=== PATIENT | male | born 1985 | race Two or more races ===

== ENCOUNTER 2023-01-15 13:40 | Emergency (ER) | payer OTHER, SELFPAY ==
--- NOTE | ~2023-01-15 | US_ITS ---
EXAMINATION: US RETROPERITONEAL LIMITED (RENAL ONLY) CLINICAL INFORMATION: Renal stones. COMPARISON: None available. TECHNIQUE: Multiple 2-D grayscale and color Doppler ultrasound images of the kidneys were obtained. FINDINGS: RIGHT KIDNEY: 10.8 x 5.6 x 5.6 cm (SAG x AP x TRV). A small hypoechoic cyst is seen in the upper pole measuring 0.2 cm. An interpolar echogenic focus measures 0.4 cm. No right hydronephrosis. Color Doppler showed no abnormal vascular flow. LEFT KIDNEY: 12.0 x 6.5 x 6.7 cm (SAG x AP x TRV). An interpolar cyst measures 1.1 cm. An upper pole echogenic focus measures 0.6 cm. A second echogenic focus measures 0.3 cm. No left hydronephrosis. Color Doppler showed no abnormal vascular flow. US/US renal BI IMPRESSION: Small renal cysts bilaterally demonstrate benign features not requiring follow-up. Nonobstructing intrarenal calculi bilaterally.
--- NOTE | 2023-01-15 13:46 | ED.ABDPAIN ---
HPI - Abdominal Pain General Chief Complaint: Abdominal Pain Stated Complaint: Kidney Stones Time Seen by Provider: 01/15/23 14:57 Source: patient Mode of arrival: ambulatory Limitations: no limitations History of Present Illness HPI narrative: Patient comes to the emergency room complaining of left-sided flank pain. Patient states the pain is intermittent, denies dysuria or hematuria. Patient states that 3 years ago he had a kidney stone and the pain is very similar. Patient denies nausea vomiting or diarrhea, no abdominal pain. No fever or chills. Related Data Previous Rx's Medication Instructions Recorded ibuprofen 600 mg tablet 600 mg PO TID PRN fever or pain 01/15/23 #14 tabs tamsulosin 0.4 mg capsule 0.4 mg PO DAILY #10 caps 01/15/23 Allergies Allergy/AdvReac Type Severity Reaction Status Date / Time No Known Allergies Allergy Verified 01/15/23 13:46 Review of Systems Review of Systems Constitutional : No Weight loss, No Fever, No Chills, No Night Sweats, No Fatigue, No Malaise ENT/Mouth : No Hearing loss, No Ear Pain, No Nasal Congestion, No Sinus Pain, No Hoarseness, No sore throat, No Rhinorrhea, No Swallowing Difficulty Eyes: No Eye Pain, No Swelling, No Redness, No Foreign Body, No Discharge, No Vision Changes Cardiovascular : No Chest Pain, No SOB, No Dyspnea on Exertion, No Orthopnea, No Edema, No Palpitations Respiratory : No Cough, No Sputum, No Wheezing, No Smoke Exposure, No Dyspnea Gastrointestinal : No Nausea, No Vomiting, No Diarrhea, No Constipation, No abdominal Pain, No Hematochezia, No Melena Genitourinary : no irregular bleeding, No Dysuria, No Urinary Frequency, No Hematuria, No Urinary Incontinence, No Urgency, complaining of left-sided Flank Pain, No Urinary Flow Changes, No Hesitancy Musculoskeletal : No joint pain, No Myalgias, No Joint Swelling Skin : No Skin Lesions, No rash Neuro : No Weakness, No Numbness, No Paresthesias, No Loss of Consciousness, No Dizziness, No Headache Psych : No Anxiety/Panic, No Depression, No SI/HI/AH/VH, No Social Issues, Heme/Lymph: No Bruising, No Bleeding,No Lymphadenopathy Endocrine : No Polyuria, No Polydipsia, No Temperature Intolerance [facility] Past Medical History Medical History GERD (gastroesophageal reflux disease) Overweight (BMI 25.0-29.9) Renal calculi Surgical History No pertinent past surgical history Family History Family History Mother No problems noted. Father No problems noted. Social History Social History Housing: Apartment Alcohol intake: never Patient Tobacco Use Status: Never used Tobacco Smoked in Last 30 Days: No e-Cigarette/Vaping Use: Never Used Second Hand Smoke Exposure: No Use of substances other than those prescribed or required for medical reasons: No Advance Directives: No Advance Directives Information Provided: No service: No Current occupational status: unemployed Physical Exam ED Vital Signs: Vital Signs - 24 hr 01/15/23 13:47 01/15/23 15:12 Temperature 98.4 F Pulse Rate 75 64 Respiratory Rate 19 16 Blood Pressure 144/99 H 136/96 H Pulse Oximetry 98 98 Oxygen Delivery Method Room Air Room Air BMI result Body Mass Index 28.7 Const Other: Appearance: Alert. Oriented X3. No acute distress. Eyes: Pupils equal, round and reactive to light. ENT: Pharynx normal. Neck: Normal inspection. Neck supple. No lymph nodes noted. No crepitus CVS: Normal heart rate and rhythm. Pulses normal. Normal S1 and S2 Respiratory: No respiratory distress. Breath sounds normal. No Wheezing. No rales Abdomen: Soft and nontender. No rigidity. No distention. Mild CVA tenderness on the left Skin: Skin warm and dry. Normal skin color. Normal skin turgor. Extremities: No lower extremity edema. No Lacerations. No Rash Neuro: Oriented X 3. No motor deficit. No sensory deficit. Moving all extremities. No slurred speech. CN 2 through 12 grossly intact Psych: calm, cooperative, normal affect Course Course Course Narrative: RME: 38yo M w/PMHx renal stones c/o LUQ abdominal pain x yesterday, admits feels similar to prior kidney stones. Denies fever, chills, N/V, urinary sx +L CVAT, abdomen soft & nontender Labs, UA, renal ultrasound ordered Full HPI, ROS and PE to be performed by primary ED provider. Medical Decision Making Medical Decision Making [facility] Narrative: -my interpretation of labs, normal white blood cell count, normal BUN creatinine and chemistry -urinalysis positive for blood, no UTI. It is likely the patient is passing a kidney stone -my interpretation of ultrasound results, no obvious calcifications -patient overall feeling better. I discussed with the patient that it is likely that he already passed a kidney stone. Differential Diagnosis Differential Diagnoses: The differential diagnosis associated with the presentation includes (UTI, pyelonephritis, ureterolithiasis) Admission/Observation Consideration of admission/observation: Escalation of care including admission/observation considered (Patient initially came in complaining of flank pain, patient has history of stones, admission considered) Lab Data [facility] Lab Attestation statement: I reviewed the patient's lab results. 01/15/23 13:59 01/15/23 13:59 Labs: Lab Results 01/15/23 01/15/23 01/15/23 Range/Units 13:59 13:59 13:59 WBC 4.8 (4.8-10.8) X10*3/uL RBC 5.37 (4.60-5.80) X10*6/uL Hgb 16.2 (14.0-18.0) g/dl Hct 48.6 (42.0-52.0) % MCV 90.5 (80.0-98.0) fL MCH 30.2 (27.0-33.0) pg MCHC 33.3 (31.0-36.0) g/dl RDW 14.4 (11.0-16.0) % Plt Count 239 (160-400) X10*3/uL MPV 10.2 (9.4-12.4) fL Immature Gran % (Auto) 0.4 (0.0-0.4) % Neut % (Auto) 56.2 (45-73) % Lymph % (Auto) 35.1 (20-40) % [place] % (Auto) 6.9 (2-11) % Eos % (Auto) 0.8 (0-4) % Baso % (Auto) 0.6 (0-2) % Lymph # (Auto) 1.7 (1.2-4.9) X10*3/uL [place] # (Auto) 0.3 (0.1-1.2) X10*3/uL Eos # (Auto) 0.0 (0.0-0.4) X10*3/uL Baso # (Auto) 0.0 (0.0-0.2) X10*3/uL Abs Immat Gran (auto) 0.02 (0.00-0.03) X10*3/uL Absolute Neuts (auto) 2.7 (2.0-8.3) x10*3/uL Absolute Nucleated RBC 0.000 (0.0-0.012) X10*3/uL Nucleated RBC % (auto) 0.0 (0.0-0.2) /100WBC Sodium 139 (135-145) mmol/L Potassium 4.0 (3.3-5.1) mmol/L Chloride 106 (96-108) mmol/L Carbon Dioxide 27 (22-29) mmol/L Anion Gap 10 L (12-20) BUN 13 (9-16) mg/dL Creatinine 0.97 (0.5-1.4) mg/dL Estim Creat Clear Calc 118.1 Estimated GFR > 60 Random Glucose 93 (60-115) mg/dL Calcium 9.9 (8.4-10.2) mg/dL Total Bilirubin 0.3 (0.0-1.0) mg/dL Direct Bilirubin 0.1 (0.0-0.5) mg/dL AST 20 (5-37) U/L ALT 17 (0-40) U/L Alkaline Phosphatase 79 (39-117) U/L Total Protein 7.6 (6.5-8.0) g/dL Albumin 4.3 (3.5-5.0) g/dL Lipase 17 (8-78) U/L Urine Color Yellow Urine Appearance Clear Urine pH 6.0 (5.0-9.0) Ur Specific [place] 1.020 (1.005-1.025) Urine Protein 30 (1+) H (Neg-Trace) mg/dL Urine Glucose (UA) Negative (Negative) mg/dL Urine Ketones Negative (Negative) mg/dL Urine Blood Large (3+) H (Negative) Urine Nitrite Negative (Negative) Ur Leukocyte Esterase Negative (Negative) Urine RBC >20 H (0-2) /HPF Urine WBC 0-5 (0-5) /HPF Ur Squamous Epith Cells 0-2 (0-2) /HPF Urine Bacteria None Seen (None Seen) Hyaline Casts 0-2 (0-2) /LPF Independent Interpretation I performed an independent interpretation of an: Ultrasound Radiology Impression Discussion of test interpretation with radiology: I have reviewed the radiologist's reading. Radiologist Impression: FINDINGS: RIGHT KIDNEY: 10.8 x 5.6 x 5.6 cm (SAG x AP x TRV). A small hypoechoic cyst is seen in the upper pole measuring 0.2 cm. An interpolar echogenic focus measures 0.4 cm. No right hydronephrosis. Color Doppler showed no abnormal vascular flow. LEFT KIDNEY: 12.0 x 6.5 x 6.7 cm (SAG x AP x TRV). An interpolar cyst measures 1.1 cm. An upper pole echogenic focus measures 0.6 cm. A second echogenic focus measures 0.3 cm. No left hydronephrosis. Color Doppler showed no abnormal vascular flow. US/US renal BI IMPRESSION: Small renal cysts bilaterally demonstrate benign features not requiring follow-up. Nonobstructing intrarenal calculi bilaterally. Independent Historian Clinical information obtained from an independent historian. History obtained from or confirmed by: Spouse External Record Review External record reviewed: Inpatient record (Visit with PCP on April 2021, recorded history of renal calculi) Prescription Management I considered prescription management with: Pain Medication (Narcotics were considered, however, patient is no longer having any significant pain, patient does not have ureterolithiasis) Medications Administered Discontinued Medications Generic Name Dose Route Start Last Admin Trade Name Freq PRN Reason Stop Dose Admin Ketorolac Tromethamine 60 mg 01/15/23 15:08 01/15/23 15:33 Ketorolac Tromethamine 60 Mg/2 Ml Vial IM 01/15/23 15:09 60 mg ONCE ONE Administration Critical Care Time Critical Care Time Critical Care Time: Yes Total Critical Care Time: 45 Attestation: I have personally provided critical care time. Time includes review of lab data, radiology results, discussion with consultants, and monitoring for potential decompensation. Intervention performed as documented. Discharge Plan Discharge Clinical Impression: Hematuria, Renal colic Patient Disposition: Home, Self-Care Instructions: Renal Colic (ED) Additional Instructions: Please follow-up with your primary care physician tomorrow. If you have any worsening or new symptoms, please return to the emergency room or call 911 Prescriptions: New tamsulosin 0.4 mg capsule 0.4 mg PO DAILY Qty: 10 0RF ibuprofen 600 mg tablet 600 mg PO TID PRN (Reason: fever or pain) Qty: 14 0RF
[2023-01-15 13:47] VITALS: BP 144/99; PULSE 75; RESP 19; O2SAT 98; BMI 28.7
[2023-01-15 14:03] LABS: MANUAL DIFF FLAG NO
[2023-01-15 14:06] LABS: Basophils Percent Auto 0.6 % (0-2); Eosinophils Percent Auto 0.8 % (0-4); Hematocrit 48.6 % (42.0-52.0); Hemoglobin 16.2 g/dl (14.0-18.0); Imm Gran Abs Auto 0.02 X10*3/uL (0.00-0.03); Imm Gran Pct Auto 0.4 % (0.0-0.4); Lymphocytes Absolute Auto 1.7 X10*3/uL (1.2-4.9); Lymphocytes Percent Auto 35.1 % (20-40); Mean Corpuscular HGB Conc 33.3 g/dl (31.0-36.0); Mean Corpuscular Hemoglobin 30.2 pg (27.0-33.0); Mean Corpuscular Volume 90.5 fL (80.0-98.0); Mean Platelet Volume 10.2 fL (9.4-12.4); Monocytes Absolute Auto 0.3 X10*3/uL (0.1-1.2); Monocytes Percent Auto 6.9 % (2-11); Neutrophils Absolute Auto 2.7 x10*3/uL (2.0-8.3); Neutrophils Percent Auto 56.2 % (45-73); Platelet Count 239 X10*3/uL (160-400); Red Blood Count 5.37 X10*6/uL (4.60-5.80); Red Cell Distribution Width 14.4 % (11.0-16.0); White Blood Count 4.8 X10*3/uL (4.8-10.8)
[2023-01-15 14:07] LABS: Appearance Urine Clear; Color Urine Yellow; Glucose Urine UA Negative (Negative); Leukocyte Esterase Urine Negative (Negative); Nitrite Urine Negative (Negative); UMIC TRIGGER UACC YES; Urine Blood Large (3+) (Negative); Urine Ketones Negative (Negative); Urine Protein 30 (1+) mg/dL (Neg-Trace)
[2023-01-15 14:09] LABS: Bacteria Urine None Seen (None Seen); Hyaline Casts Urine 0-2 /LPF (0-2); RBC Urine >20 /HPF (0-2); Squamous Epithelial Cell Urine 0-2 /HPF (0-2); WBC Urine 0-5 /HPF (0-5)
[2023-01-15 14:19] LABS: Alanine Aminotransferase 17 U/L (0-40); Albumin Level 4.3 g/dL (3.5-5.0); Alkaline Phosphatase 79 U/L (39-117); Anion Gap 10 (12-20); Aspartate Amino Transferase 20 U/L (5-37); Bilirubin Direct 0.1 mg/dL (0.0-0.5); Bilirubin Total 0.3 mg/dL (0.0-1.0); Blood Urea Nitrogen 13 mg/dL (9-16); Calcium 9.9 mg/dL (8.4-10.2); Carbon Dioxide 27 mmol/L (22-29); Chloride 106 mmol/L (96-108); Creatinine Clr Calc Pharmacy 118.1; Estimated Glomerular Filt Rate > 60; Glucose Random 93 mg/dL (60-115); Lipase 17 U/L (8-78); Sodium 139 mmol/L (135-145); Total Protein 7.6 g/dL (6.5-8.0)
[2023-01-15 15:12] VITALS: BP 136/96; PULSE 64; RESP 16; TEMP 36.9; O2SAT 98
[2023-01-15] MEDS: Ketorolac Tromethamine 60 MG/2 ML VIAL IM (15:33)
[2023-01-15 16:33] VITALS: BP 140/90; PULSE 69; RESP 17; O2SAT 97
== END 2023-01-15 16:38 | disposition home or self-care (01) ==
PROVIDERS: Physician Assistant; Emergency Provider Emergency Medicine; PCP Internal Medicine
DX: R31.9 Hematuria, unspecified (principal); N23 Unspecified renal colic; K21.9 Gastro-esophageal reflux disease without esophagitis
CPT/HCPCS: 36415; 76775; 80048; 80076; 81001; 83690; 85025; 96372; 99284; J1885

== ENCOUNTER 2023-01-18 11:03 | Emergency (ER) | payer OTHER, SELFPAY ==
--- NOTE | ~2023-01-18 | US_ITS ---
EXAMINATION: US RETROPERITONEAL LIMITED (RENAL ONLY) INDICATION: Left CVA tenderness EXAMINATION: Renal ultrasound. Comparison is made to previous exam dated 01/15/2023. Findings; Right kidney is measuring 11 x 5 x 6 cm. There is no evidence of hydronephrosis. Several areas of echogenicity are noted. One in the lower pole measuring 4 mm and another in the lower pole measuring 6 mm. These may represent nonobstructing calculi. The left kidney is measuring 13 x 8 x 6 cm. Examination is showing mild pelvic fullness on this study. Similar to previous exam. 3 Stones are identified. Largest in the midpole measures 7 mm. 4 mm calculus in the upper pole and a 6 mm calculus in the lower pole US/US renal BI IMPRESSION: Bilateral renal calculi are demonstrated here. Mild fullness of the central collecting system of the left kidney but this is also the case previously.
--- NOTE | ~2023-01-18 | CT_ITS ---
EXAMINATION: CT ABDOMEN AND PELVIS WITHOUT CONTRAST CLINICAL INFORMATION: Flank pain. COMPARISON: None available. TECHNIQUE: Multidetector volumetric imaging was performed from the superior aspect of the liver through the pubic symphysis. Sagittal and coronal reformatted images were obtained on the technologist's workstation. This CT examination was performed using dose optimization techniques as appropriate, variously including the following: *Automated exposure control *Adjustment of mA and/or kV according to patient size (this includes techniques or standardized protocols for targeted exams where dose is matched to indication/reason for exam; i.e. extremities or head) *Use of iterative reconstruction technique DLP: 537 mGy-cm FINDINGS: The lack of intravenous contrast limits evaluation of the solid visceral organs including the liver, spleen, pancreas, and kidneys. LUNG BASES: Platelike opacities in the right greater than left lung bases, favoring to represent subsegmental atelectases. LIVER, GALLBLADDER, AND BILIARY TREE: Noncontrast liver is normal in size, shape and attenuation. There is a 1.4 cm simple fluid attenuating cyst abutting the gallbladder in the medial left hepatic lobe and a 1.5 cm simple fluid attenuating cyst in the hepatic dome. There are several additional too small to characterize hypodensities scattered throughout the liver. Subtle hyperattenuating material layering in the gallbladder likely representing sludge. No calcified gallbladder calculi. No significant pericholecystic fat stranding or free fluid to suspected acute cholecystitis. No biliary ductal dilatation. PANCREAS: Limited noncontrast examination. Minimal nonspecific fatty haziness at the root of the small bowel mesentery. No significant peripancreatic fat stranding or free fluid. No main ductal dilatation. SPLEEN: Normal size. ADRENAL GLANDS: There is a 1.2 cm left adrenal nodule measuring 16 Hounsfield units. Normal right adrenal gland. KIDNEYS AND URETERS: Mild left hydroureteronephrosis with a 0.7 cm calculus in the proximal left ureter at the level of L2 measuring 1353 Hounsfield units. Multiple additional bilateral nonobstructive renal calculi in the number of approximately 5 in the right kidney and 3 in the left kidney largest measuring 0.4 cm. No discrete focal renal lesion in this limited noncontrast examination. BLADDER: Unremarkable. GASTROINTESTINAL TRACT: The stomach and the small bowel are nondilated. Normal appendix. Mild colonic diverticulosis without significant pericolonic fat stranding or free fluid. No evidence of bowel obstruction. ABDOMINAL WALL: No significant hernia is appreciated. LYMPH NODES: No lymphadenopathy. VASCULAR: Normal caliber abdominal aorta. PELVIC VISCERA: Mild prostatomegaly. OSSEOUS STRUCTURES: No acute or aggressive appearing osseous findings. CT/CT abdomen pelvis wo IV con IMPRESSION: 1. Mild left hydroureteronephrosis with a 0.7 cm calculus in the proximal left ureter. 2. Multiple additional nonobstructive bilateral renal calculi. 3. Mild colonic diverticulosis without evidence of acute diverticulitis. 4. Liver cysts with several additional too small to characterize liver hypodensities that are statistically also likely to represent simple cysts. If the patient has risk factors for malignancy, further characterization with an outpatient MRI of the abdomen with and without IV contrast is recommended. 5. Incidentally noted 1.2 cm left adrenal nodule measuring 16 Hounsfield units. If no prior history of malignancy, this most likely represents an adenoma. Recommend one-year follow-up adrenal washout CT. If stable in one year, no further follow-up imaging recommended.
--- NOTE | 2023-01-18 12:27 | ED_ITS ---
HPI - General Adult General Chief complaint: General Medical Stated complaint: kidney stone pain Time Seen by Provider: 01/18/23 16:56 Source: patient Mode of arrival: ambulatory Limitations: no limitations History of Present Illness HPI narrative: 38 yo male with history of renal colic here with left flank pain with radiation to left abdomen since Saturday. Today/yesterday had single episodes of vomiting. No diarrhea, constipation, urinary symptoms, fevers or chills Related Data Previous Rx's Medication Instructions Recorded ibuprofen 600 mg tablet 600 mg PO TID PRN fever or pain 01/15/23 #14 tabs tamsulosin 0.4 mg capsule 0.4 mg PO DAILY #10 caps 01/15/23 ibuprofen 600 mg tablet 600 mg PO Q8H PRN pain #30 tabs 01/18/23 oxycodone 5 mg tablet 5 mg PO Q8H PRN pain #10 tabs 01/18/23 tamsulosin 0.4 mg capsule (Flomax) 0.4 mg PO BEDTIME #30 caps 01/18/23 Allergies Allergy/AdvReac Type Severity Reaction Status Date / Time No Known Allergies Allergy Verified 01/18/23 12:29 Review of Systems Review of Systems: Yes all other systems are reviewed and are negative Constitutional: Constitutional: Reports no additional constitutional complaints, Denies body ache(s), Denies chills, Denies fever(s), Denies headache(s) and Denies weakness Eyes: Eyes: Reports no additional eye complaints and Denies change in vision ENT: Reports system reviewed and no additional complaints, except as documented, Denies dizziness, Denies headache(s), Denies nasal congestion, Denies nasal discharge and Denies neck pain Cardiovascular: Cardiovascular: Reports no additional cardiovascular complaints, Denies chest pain, Denies leg edema and Denies dyspnea Respiratory: Respiratory: Reports no additional respiratory complaints, Denies cough and Denies dyspnea Gastrointestinal: Gastrointestinal: Reports no additional gastrointestinal complaints, Reports abdominal pain, Denies diarrhea, Reports nausea and Reports vomiting Genitourinary: Genitourinary: Denies urinary incontinence Musculoskeletal: Musculoskeletal: Reports no additional musculoskeletal complaints, Reports back pain, Denies arthralgias, Denies joint swelling, Denies neck pain, Denies numbness and Denies tingling Integumentary/Breasts: Skin/Breast: Reports system reviewed and no additional complaints, except as docu and Denies rash Neurologic: Reports system reviewed and no additional complaints, except as documented, Denies dizziness, Denies headache(s), Denies numbness, Denies tingling and Denies weakness PMFSH Past Medical History Attestation statement: The following information was validated with the patient. Source: old records reviewed and nursing notes reviewed Medical History GERD (gastroesophageal reflux disease) Overweight (BMI 25.0-29.9) Renal calculi Surgical History No pertinent past surgical history Family History Family History Mother No problems noted. Father No problems noted. Social History Social History Housing: Apartment Alcohol intake: never Patient Tobacco Use Status: Never used Tobacco Smoked in Last 30 Days: No e-Cigarette/Vaping Use: Never Used Second Hand Smoke Exposure: No Use of substances other than those prescribed or required for medical reasons: No Advance Directives: No Advance Directives Information Provided: No service: No Current occupational status: unemployed Physical Exam ED Vital Signs: Vital Signs - 24 hr 01/18/23 12:29 01/18/23 17:32 01/18/23 18:58 Temperature 97.9 F 98.4 F Pulse Rate 73 71 72 Respiratory Rate 20 18 18 Blood Pressure 143/83 H 139/87 153/96 H Pulse Oximetry 96 98 97 Oxygen Delivery Method Room Air Room Air Room Air BMI result Body Mass Index 28.5 Const General: cooperative, healthy appearing, comfortable and no acute distress Orientation/consciousness: patient oriented x3 Limitations: no limitations HENMT Head: Yes normal to inspection Ears: hearing grossly normal bilaterally Eyes General: appearance normal, both eyes and all related structures Pupils: Equal, round and reactive pupils present Neck Neck: Yes normal visual inspection, Yes full ROM, Yes no lymphadenopathy and Yes no meningeal signs Chest Chest palpation & inspection: normal inspection of the chest Resp Effort & Inspection: normal respiratory effort Auscultation: clear to auscultation bilaterally Cardio Rate: regular rate Rhythm: regular rhythm Peripheral pulses: Peripheral pulses 2+ throughout GI Inspection: Yes normal to inspection Palpation (GI): Soft to palpation, Tenderness to palpation present (GI) in the LUQ; with no rebound tenderness and no guarding Auscultation: normal bowel sounds General: Yes CVA tenderness (left) Back/Spine/Pelvis Back: CVA tenderness (left) Skin General skin exam: no rashes or lesions noted Neuro General: patient oriented x3, moves all extremities and no meningeal signs Cranial nerves: Yes Equal, round and reactive pupils present Cognition (Neuro): normal cognition Gait exam (Neuro): Normal gait present Extrem General: Yes normal to inspection Course Course Course Narrative: This is a rapid medical exam: Additional HPI, ROS, PE not included below will be deferred to primary provider. Patient is a 38-year-old male with history of renal calculi presenting to the emergency department with left flank pain occasionally radiating around to LLQ since Saturday. States feels similar to prior stones. No difficulty urinating. Reports nausea and vomiting as well as subjective fevers. Positive left CVA tenderness on exam. Plan: UA, labs, U/S, IM ketorolac in triage Reevaluation(s) Reevaluation #1: 1830-labs show normal renal function and CBC. UA shows large amounts of blood and small leuks. Renal ultrasound is unremarkable. Continued pain. Will check CT abdomen and pelvis Reevaluation #2: 1930- IMPRESSION: 1.? Mild left hydroureteronephrosis with a 0.7 cm calculus in the proximal left ureter. 2.? Multiple additional nonobstructive bilateral renal calculi. 3.? Mild colonic diverticulosis without evidence of acute diverticulitis. 4.? Liver cysts with several additional too small to characterize liver hypodensities that are statistically also likely to represent simple cysts. If the patient has risk factors for malignancy, further characterization with an outpatient MRI of the abdomen with and without IV contrast is recommended. 5.? Incidentally noted 1.2 cm left adrenal nodule measuring 16 Hounsfield units. If no prior history of malignancy, this most likely represents an adenoma. Recommend one-year follow-up adrenal washout CT. If stable in one year, no further follow-up imaging recommended. The findings reviewed with the patient and his . She was given a copy of the report with the patient's consent. The patient tells me his pain is resolved. I will discharge him home with NSAID, Flomax and oxycodone p.r.n.. Recommend he follow-up with urology outpatient. Reviewed worrisome signs and symptoms of when to return to the emergency room. Comfortable plan for discharge home. Medications Administered Discontinued Medications Generic Name Dose Route Start Last Admin Trade Name Eduardo PRN Reason Stop Dose Admin Sodium Chloride 1,000 mls @ 999 mls/hr 01/18/23 17:06 01/18/23 19:31 Ns IV 01/18/23 18:06 Infused .Q1H1M STA Infusion Ketorolac Tromethamine 30 mg 01/18/23 12:30 01/18/23 12:35 Ketorolac Tromethamine 30 Mg/Ml Vial IM 01/18/23 12:31 30 mg ONCE ONE Administration Morphine Sulfate 4 mg 01/18/23 17:06 01/18/23 18:09 Morphine Sulfate 4 Mg/Ml Cartridge IVPUSH 01/18/23 17:07 4 mg ONCE ONE Administration Protocol Ondansetron HCl 4 mg 01/18/23 17:06 01/18/23 18:09 Ondansetron Hcl 4 Mg/2 Ml Vial IVPUSH 01/18/23 17:07 4 mg ONCE ONE Administration Medical Decision Making Medical Decision Making [facility] Narrative: 38 yo male with history of renal colic here with left flank pain with radiation to LUQ since Saturday, 2 episodes of vomiting. On exam patient with L CVAT, LUQ TTP with no rebound or guarding. Will obtain labs, UA, provide analgesia. May need advanced imaging Differential Diagnosis Differential Diagnoses: The differential diagnosis associated with the presentation includes Pancreatitis, renal colic, pyelonephritis Low concern for acute appendicitis or diverticulitis Admission/Observation Consideration of admission/observation: Escalation of care including admission/observation considered See course of care Lab Data [facility] Lab Attestation statement: I reviewed the patient's lab results. 01/18/23 14:36 01/18/23 14:36 Labs: Lab Results 01/18/23 01/18/23 01/18/23 Range/Units 14:36 14:36 14:36 WBC 10.8 (4.8-10.8) X10*3/uL RBC 5.38 (4.60-5.80) X10*6/uL Hgb 16.1 (14.0-18.0) g/dl Hct 48.2 (42.0-52.0) % MCV 89.6 (80.0-98.0) fL MCH 29.9 (27.0-33.0) pg MCHC 33.4 (31.0-36.0) g/dl RDW 14.5 (11.0-16.0) % Plt Count 248 (160-400) X10*3/uL MPV 9.8 (9.4-12.4) fL Immature Gran % (Auto) 0.1 (0.0-0.4) % Neut % (Auto) 84.2 H (45-73) % Lymph % (Auto) 10.4 L (20-40) % [place] % (Auto) 4.9 (2-11) % Eos % (Auto) 0.0 (0-4) % Baso % (Auto) 0.4 (0-2) % Lymph # (Auto) 1.1 L (1.2-4.9) X10*3/uL [place] # (Auto) 0.5 (0.1-1.2) X10*3/uL Eos # (Auto) 0.0 (0.0-0.4) X10*3/uL Baso # (Auto) 0.0 (0.0-0.2) X10*3/uL Abs Immat Gran (auto) 0.01 (0.00-0.03) X10*3/uL Absolute Neuts (auto) 9.1 H (2.0-8.3) x10*3/uL Absolute Nucleated RBC 0.000 (0.0-0.012) X10*3/uL Nucleated RBC % (auto) 0.0 (0.0-0.2) /100WBC Sodium 140 (135-145) mmol/L Potassium 4.0 (3.3-5.1) mmol/L Chloride 105 (96-108) mmol/L Carbon Dioxide 25 (22-29) mmol/L Anion Gap 14 (12-20) BUN 9 (9-16) mg/dL Creatinine 0.95 (0.5-1.4) mg/dL Estim Creat Clear Calc 120.1 Estimated GFR > 60 Random Glucose 86 (60-115) mg/dL Calcium 9.7 (8.4-10.2) mg/dL Total Bilirubin 0.6 (0.0-1.0) mg/dL AST 19 (5-37) U/L ALT 16 (0-40) U/L Alkaline Phosphatase 70 (39-117) U/L Total Protein 7.7 (6.5-8.0) g/dL Albumin 4.3 (3.5-5.0) g/dL Lipase 14 (8-78) U/L Urine Color Yellow Urine Appearance Clear Urine pH 6.0 (5.0-9.0) Ur Specific [place] 1.020 (1.005-1.025) Urine Protein 30 (1+) H (Neg-Trace) mg/dL Urine Glucose (UA) Negative (Negative) mg/dL Urine Ketones Negative (Negative) mg/dL Urine Blood Large (3+) H (Negative) Urine Nitrite Negative (Negative) Ur Leukocyte Esterase Small (1+) H (Negative) Urine RBC >20 H (0-2) /HPF Urine WBC 0-5 (0-5) /HPF Ur Squamous Epith Cells 0-2 (0-2) /HPF Urine Bacteria None Seen (None Seen) Hyaline Casts 0-2 (0-2) /LPF Independent Interpretation I performed an independent interpretation of an: Ultrasound and CT Scan Interpretation: I independently reviewed the ultrasound and CT scan agree the radiology report Radiology Impression Discussion of test interpretation with radiology: I have reviewed the radiologist's reading. Radiologist Impression: Launch?Image [place] [address] Ultrasound Report Signed Patient: Bhavin Gonzalez MR#: [id number] : 1985 Acct:[id number] Age/Sex: 38 / M ADM Date: 01/18/23 Loc: .ED Attending Dr: Ordering Physician: Ashely Almodovar NP Date of Service: 01/18/23 Procedure(s): US renal BI Accession Number(s): [id number] cc: Ashely Almodovar NP~ EXAMINATION: US RETROPERITONEAL LIMITED (RENAL ONLY) INDICATION: Left CVA tenderness EXAMINATION: Renal ultrasound. Comparison is made to previous exam dated 01/15/2023. Findings; Right kidney is measuring 11 x 5 x 6 cm. There is no evidence of hydronephrosis. Several areas of echogenicity are noted. One in the lower pole measuring 4 mm and another in the lower pole measuring 6 mm. These may represent nonobstructing calculi. The left kidney is measuring 13 x 8 x 6 cm. Examination is showing mild pelvic fullness on this study. Similar to previous exam. 3 Stones are identified. Largest in the midpole measures 7 mm. 4 mm calculus in the upper pole and a 6 mm calculus in the lower pole US/US renal BI IMPRESSION: Bilateral renal calculi are demonstrated here. Mild fullness of the central collecting system of the left kidney but this is also the case previously. [address] [address] [address] Scan Report Signed Patient: Bhavin Gonzalez MR#: [id number] : 1985 Acct:[id number] Age/Sex: 38 / M ADM Date: 01/18/23 Loc: HO.ED Attending Dr: Ordering Physician: Taty Nice NP Date of Service: 01/18/23 Procedure(s): CT abdomen pelvis wo IV con Accession Number(s): [id number] cc: Taty Nice NP~ EXAMINATION: CT ABDOMEN AND PELVIS WITHOUT CONTRAST? CLINICAL INFORMATION: Flank pain.? COMPARISON: None available. TECHNIQUE: Multidetector volumetric imaging was performed from the superior aspect of the liver through the pubic symphysis. Sagittal and coronal reformatted images were obtained on the technologist's workstation.? This CT examination was performed using dose optimization techniques as appropriate, variously including the following: *Automated exposure control *Adjustment of mA and/or kV according to patient size (this includes techniques or standardized protocols for targeted exams where dose is matched to indication/reason for exam; i.e. extremities or head) *Use of iterative reconstruction technique DLP: 537 mGy-cm FINDINGS: The lack of intravenous contrast limits evaluation of the solid visceral organs including the liver, spleen, pancreas, and kidneys. LUNG BASES: Platelike opacities in the right greater than left lung bases, favoring to represent subsegmental atelectases.? LIVER, GALLBLADDER, AND BILIARY TREE: Noncontrast liver is normal in size, shape and attenuation. There is a 1.4 cm simple fluid attenuating cyst abutting the gallbladder in the medial left hepatic lobe and a 1.5 cm simple fluid attenuating cyst in the hepatic dome. There are several additional too small to characterize hypodensities scattered throughout the liver. Subtle hyperattenuating material layering in the gallbladder likely representing sludge. No calcified gallbladder calculi. No significant pericholecystic fat stranding or free fluid to suspected acute cholecystitis. No biliary ductal dilatation. PANCREAS: Limited noncontrast examination. Minimal nonspecific fatty haziness at the root of the small bowel mesentery. No significant peripancreatic fat stranding or free fluid. No main ductal dilatation. SPLEEN: Normal size.? ADRENAL GLANDS: There is a 1.2 cm left adrenal nodule measuring 16 Hounsfield units. Normal right adrenal gland.? KIDNEYS AND URETERS: Mild left hydroureteronephrosis with a 0.7 cm calculus in the proximal left ureter at the level of L2 measuring 1353 Hounsfield units. Multiple additional bilateral nonobstructive renal calculi in the number of approximately 5 in the right kidney and 3 in the left kidney largest measuring 0.4 cm. No discrete focal renal lesion in this limited noncontrast examination.? BLADDER: Unremarkable.? GASTROINTESTINAL TRACT: The stomach and the small bowel are nondilated. Normal appendix. Mild colonic diverticulosis without significant pericolonic fat stranding or free fluid. No evidence of bowel obstruction.? ABDOMINAL WALL: No significant hernia is appreciated.? LYMPH NODES: No lymphadenopathy. VASCULAR: Normal caliber abdominal aorta. PELVIC VISCERA: Mild prostatomegaly.? OSSEOUS STRUCTURES: No acute or aggressive appearing osseous findings. CT/CT abdomen pelvis wo IV con IMPRESSION: 1.? Mild left hydroureteronephrosis with a 0.7 cm calculus in the proximal left ureter. 2.? Multiple additional nonobstructive bilateral renal calculi. 3.? Mild colonic diverticulosis without evidence of acute diverticulitis. 4.? Liver cysts with several additional too small to characterize liver hypodensities that are statistically also likely to represent simple cysts. If the patient has risk factors for malignancy, further characterization with an outpatient MRI of the abdomen with and without IV contrast is recommended. 5.? Incidentally noted 1.2 cm left adrenal nodule measuring 16 Hounsfield units. If no prior history of malignancy, this most likely represents an adenoma. Recommend one-year follow-up adrenal washout CT. If stable in one year, no further follow-up imaging recommended. Independent Historian Clinical information obtained from an independent historian. History obtained from or confirmed by: Spouse Prescription Management I considered prescription management with: Pain Medication Discharge Plan Discharge Clinical Impression: Renal calculi Patient Disposition: Home, Self-Care Instructions: Kidney Stones (ED) Additional Instructions: You have a kidney stone on the left side. You also have several liver cyst which are incidental findings but do need to be followed up with your primary care doctor. You were given a copy of the report. Your lab work and urine testing look normal. Please increase fluids at home Return for increasing pain, fever, vomiting Follow-up with Urology Prescriptions: New ibuprofen 600 mg tablet 600 mg PO Q8H PRN (Reason: pain) Qty: 30 0RF tamsulosin [Flomax] 0.4 mg capsule 0.4 mg PO BEDTIME Qty: 30 0RF oxycodone 5 mg tablet 5 mg PO Q8H PRN (Reason: pain) Qty: 10 0RF Rx Instructions: Partial Fill upon patient request. No Action tamsulosin 0.4 mg capsule 0.4 mg PO DAILY Qty: 10 0RF ibuprofen 600 mg tablet 600 mg PO TID PRN (Reason: fever or pain) Qty: 14 0RF Referrals: Allen Szymanski MD [Physician] - 5 days Stand Alone Forms: Work/School Release Interventions: ED Discharge Assessment Last Done: 01/18/23 19:44 Discharge Date/Time: 01/18/23 19:44
[2023-01-18 12:29] VITALS: BP 143/83; PULSE 73; RESP 20; TEMP 36.6; O2SAT 96; BMI 28.5
[2023-01-18] MEDS: Ketorolac Tromethamine 30 MG/ML VIAL IM (12:35)
[2023-01-18 14:40] LABS: MANUAL DIFF FLAG NO
[2023-01-18 14:43] LABS: Appearance Urine Clear; Color Urine Yellow; Glucose Urine UA Negative (Negative); Leukocyte Esterase Urine Small (1+) (Negative); Nitrite Urine Negative (Negative); UMIC TRIGGER UACC YES; Urine Blood Large (3+) (Negative); Urine Ketones Negative (Negative); Urine Protein 30 (1+) mg/dL (Neg-Trace)
[2023-01-18 14:46] LABS: Basophils Percent Auto 0.4 % (0-2); Hematocrit 48.2 % (42.0-52.0); Hemoglobin 16.1 g/dl (14.0-18.0); Imm Gran Abs Auto 0.01 X10*3/uL (0.00-0.03); Imm Gran Pct Auto 0.1 % (0.0-0.4); Lymphocytes Absolute Auto 1.1 X10*3/uL (1.2-4.9); Lymphocytes Percent Auto 10.4 % (20-40); Mean Corpuscular HGB Conc 33.4 g/dl (31.0-36.0); Mean Corpuscular Hemoglobin 29.9 pg (27.0-33.0); Mean Corpuscular Volume 89.6 fL (80.0-98.0); Mean Platelet Volume 9.8 fL (9.4-12.4); Monocytes Absolute Auto 0.5 X10*3/uL (0.1-1.2); Monocytes Percent Auto 4.9 % (2-11); Neutrophils Absolute Auto 9.1 x10*3/uL (2.0-8.3); Neutrophils Percent Auto 84.2 % (45-73); Platelet Count 248 X10*3/uL (160-400); Red Blood Count 5.38 X10*6/uL (4.60-5.80); Red Cell Distribution Width 14.5 % (11.0-16.0); White Blood Count 10.8 X10*3/uL (4.8-10.8)
[2023-01-18 15:09] LABS: Bacteria Urine None Seen (None Seen); Hyaline Casts Urine 0-2 /LPF (0-2); RBC Urine >20 /HPF (0-2); Squamous Epithelial Cell Urine 0-2 /HPF (0-2); UACC Culture Trigger YES; WBC Urine 0-5 /HPF (0-5)
[2023-01-18 15:18] LABS: Alanine Aminotransferase 16 U/L (0-40); Albumin Level 4.3 g/dL (3.5-5.0); Alkaline Phosphatase 70 U/L (39-117); Anion Gap 14 (12-20); Aspartate Amino Transferase 19 U/L (5-37); Bilirubin Total 0.6 mg/dL (0.0-1.0); Blood Urea Nitrogen 9 mg/dL (9-16); Calcium 9.7 mg/dL (8.4-10.2); Carbon Dioxide 25 mmol/L (22-29); Chloride 105 mmol/L (96-108); Creatinine Clr Calc Pharmacy 120.1; Estimated Glomerular Filt Rate > 60; Glucose Random 86 mg/dL (60-115); Sodium 140 mmol/L (135-145); Total Protein 7.7 g/dL (6.5-8.0)
[2023-01-18 17:32] VITALS: BP 139/87; PULSE 71; RESP 18; TEMP 36.9; O2SAT 98
[2023-01-18 17:58] LABS: Lipase 14 U/L (8-78)
[2023-01-18] MEDS: 0.9 % Sodium Chloride 1,000 ML 999 ML IV (17:58)
[2023-01-18] MEDS: Morphine Sulfate 4 MG/ML CARTRIDGE IVPUSH (18:09)
[2023-01-18] MEDS: ondansetron HCL 4 MG/2 ML VIAL IVPUSH (18:09)
[2023-01-18 18:58] VITALS: BP 153/96; PULSE 72; RESP 18; O2SAT 97
--- NOTE | 2023-01-18 19:00 | PC.NURSE ---
Assumed care of pt. at bedside. Pt denies pain at this time. VSS, pending plan of care.
== END 2023-01-18 19:44 | disposition home or self-care (01) ==
PROVIDERS: Nurse Practitioner Family; Registered Nurse Emergency; Emergency Provider Emergency Medicine; PCP Internal Medicine
DX: N20.0 Calculus of kidney (principal); R10.9 Unspecified abdominal pain; R11.2 Nausea with vomiting, unspecified; Z79.899 Other long term (current) drug therapy
CPT/HCPCS: 36415; 74176; 76775; 80053; 81001; 83690; 85025; 87086; 96361; 96372; 96374; 96375; 99284; J1885; J2270; J2405

== ENCOUNTER 2023-02-13 09:56 | Outpatient (AMB) | payer OTHER, SELFPAY ==
[2023-02-13 09:57] VITALS: BP 130/100; PULSE 73; O2SAT 96; BMI 28.0
--- NOTE | 2023-02-13 09:57 | MHC.PC.OV ---
Vital Signs 02/13/23 09:57 Height 5 ft 10 in Weight 195 lb 2 oz BMI 28.0 BP 130/100 H Blood Pressure Location Lt brachial Position Sitting Pulse 73 Pulse Source Pulse Oximeter Pulse Oximetry (%) 96 Oxygen Delivery Method Room Air Intake Visit Reasons: f/u (Dr. Flores pt) Air Conditioning [employer] Required: No Accompanied by: Self / Same As Patient Allergies No Known Allergies Allergy (Verified 02/13/23 10:35) Medication List - Last Reconciled 02/13/23 by Michel Pruitt MD No Known Home Meds Tobacco use date assessed: 02/13/23 Dental Screening Dental Screen Date: 02/13/23 Did you have a dental visit in the last 12 months?: No Did you have a dental problem in the last 6 months where you did not have access to dental care?: No Was dental information given to patient?: No HPI f/u (Dr. Flores pt) HPI Details Patient comes in today for his HDF follow up visit He is a patient of Dr. Flores who I am seeing today in her absence He went to the ER last month on 01/18/23 for left flank and left abdominal pain and was diagnosed with renal stones Abdominal and pelvic CT done revealed (+) mild left hydronephrosis with a 0.7 mm calculus in the proximal left ureter as well as multiple additional nonobstructive bilateral renal calculi, confirmed on subsequent renal US He was started on Tamsulosin and on some Oxycodone and Ibuprofen PRN for pain and was advised to increase his oral fluids and to follow up with his PCP and with urology States that he has apparently passed out his kidney stones since and he currently has no further issues with abdominal or flank pains Is currently no longer taking any prescription medications regularly He denies any headaches or dizziness; denies any fever Denies any chest pains, no SOB No nausea/vomtiing; no acute urinary symptoms noted lately [facility] Medical History (Updated 02/13/23 @ 10:48 by Michel Pruitt MD) Renal calculi Overweight (BMI 25.0-29.9) GERD (gastroesophageal reflux disease) Surgical History No pertinent past surgical history Family History Mother No problems noted. Father No problems noted. Social History Housing: Apartment Alcohol intake: never Patient Tobacco Use Status: Never used Tobacco e-Cigarette/Vaping Use: Never Used Second Hand Smoke Exposure: No service: No Current occupational status: unemployed Cognitive needs: No Hearing needs: No Vision needs: No Questionnaire PHQ-9 Over the last 2 weeks, how often have you been bothered by any of the following problems? 1. Little interest or pleasure in doing things: not at all 2. Feeling down, depressed, or hopeless: not at all 3. Trouble falling or staying asleep, or sleeping too much: not at all 4. Feeling tired or having little energy: not at all 5. Poor appetite or overeating: not at all 6. Feeling bad about yourself - or that you are a failure or have let yourself or your family down: not at all 7. Trouble concentrating on things, such as reading the newspaper or watching television: not at all 8. Moving or speaking so slowly that other people could have noticed. Or the opposite - being so fidgety or restless that you have been moving around a lot more than usual: not at all 9. Thoughts that you would be better off or of hurting yourself in some way: not at all Total score: 0 Depression Screening Interpretation: Negative 76190 - PHQ-9 Billing: Yes Source: Developed by Drs. Chet Lara, Mary Fierro, Eloy Salgado and colleagues, with an educational ceci from [employer]. Thrive Questionnaire Date Thrive assessed: 02/13/23 I am a: Patient What is your living situation today?: I have a steady place to live Within the past 12 months, did the food you bought not last and you didn't have the money to get more?: Never true Within the past 12 months, did you worry whether your food would run out before you got money to buy more?: Never true Do you have trouble paying for medicines?: No Do you have trouble getting transportation to medical appointments?: No Do you have trouble paying your heating and electricity bill?: No Do you have trouble taking care of your child, family member or friend?: No Do you have trouble with day-to-day activities such as bathing, preparing meals, shopping, managing finances, etc.?: No Are you currently unemployed and looking for a job?: No Are you interested in more education?: No Please select the resources that you would like help with: None Currently or been in a relationship where the following occur: no concerns reported AUDIT C Alcohol Use Questionnaire (AUDIT-C) 1. How often do you have a drink containing alcohol?: Monthly or less 2. How many drinks containing alcohol do you have on a typical day when you are drinking?: 1 or 2 3. How often do you have six or more drinks on one occasion?: Never Total Score: 1 Score Reviewed/Action Taken: Yes JOCELINE-7 AMB Questionnaire JOCELINE-7 Date JOCELINE - 7 assessed: 02/13/23 Feeling nervous, anxious, or on edge: 0 = Not at all Not being able to stop or control worryin = Not at all Worrying too much about different things: 0 = Not at all Trouble relaxin = Not at all Being so restless that it is hard to sit still: 0 = Not at all Becoming easily annoyed or irritable: 0 = Not at all Feeling afraid as if something awful might happen: 0 = Not at all Total JOCELINE-7 score (0-4 normal; 5-9 mild; 10-14 moderate; 15-21 severe): 0 Source: Developed by Drs. Chet Lara, Mary Fierro, Eloy Salgado and colleagues, with an educational ceci from [employer]. JOCELINE-7 Assessment Billing JOCELINE-7 Assessment Tool: JOCELINE-7 Assessment 90028 Review of Systems Const Denies chills, Denies fatigue, Denies fever(s) and Denies headache(s) ENT Denies dysphagia, Denies dizziness, Denies otalgia, Denies headache(s), Denies neck pain, Denies odynophagia and Denies sore throat Card Denies chest pain, Denies palpitations and Denies dyspnea Resp Denies cough and Denies dyspnea GI Denies abdominal pain, Denies constipation, Denies dysphagia, Denies heartburn, Denies diarrhea, Denies nausea, Denies odynophagia and Denies vomiting Denies hematuria, Denies dysuria, Denies nocturia and Denies urinary frequency Musc Denies back pain and Denies neck pain Skin/Breast Denies rash Neuro Denies dizziness and Denies headache(s) Endo Denies fatigue and Denies palpitations Physical exam (Primary Care) Vital Signs: Last Vital Signs Pulse 73 02/13/23 09:57 BP 130/100 H 02/13/23 09:57 Pulse Ox 96 02/13/23 09:57 Oxygen Delivery Method Room Air 02/13/23 09:57 BMI result Body Mass Index 28.0 Tobacco/Smoking Status: Tobacco use Status Tobacco use date assessed 02/13/23 02/13/23 10:04 Patient Tobacco Use Status Never used Tobacco 02/13/23 10:04 e-Cigarette/Vaping Use Never Used 02/13/23 10:04 PHQ-9: PHQ-9 Score PHQ-9: Total score 0 02/13/23 10:34 Depression Screening Interpretation: Negative Thrive Assessment: Date of Thrive Assessment Date Thrive assessed 02/13/23 02/13/23 10:04 Currently or been in a relationship where the following occur: no concerns reported Const General: no acute distress and alert Neck Neck: Yes no lymphadenopathy and Yes supple Resp Auscultation: clear to auscultation bilaterally, no rales and no wheezes Cardio Rate: regular rate Rhythm: regular rhythm Heart sounds: no murmurs GI Palpation (GI): Soft to palpation and nontender Auscultation: normal bowel sounds General: Yes no CVA tenderness Back/Spine/Pelvis Back: no CVA tenderness Skin Rashes: no rashes Extrem General: Yes no clubbing, cyanosis or edema Results Reviewed Results Reviewed: Laboratory Tests 01/18/23 14:36 WBC 10.8 Hgb 16.1 Hct 48.2 Plt Count 248 Sodium 140 Potassium 4.0 Creatinine 0.95 Estimated GFR > 60 Random Glucose 86 Calcium 9.7 AST 19 ALT 16 Lipase 14 Ur Specific [place] 1.020 Urine Protein 30 (1+) H Urine Glucose (UA) Negative Urine Blood Large (3+) H Assessment and Plan Assessment & Plan (1) Renal calculi: Code(s): N20.0 - Calculus of kidney Plan: He is currently asymptomatic and appears to have passed out his previous renal calculi Reinforced increased oral fluids Will refer him to urology for follow up and continuing management (2) Elevated blood pressure reading without diagnosis of hypertension: Code(s): R03.0 - Elevated blood-pressure reading, without diagnosis of hypertension Plan: Is advised that his blood pressure remains elevated today and it has been elevated a few times over his last few visits here Discussed low sodium diet and advised goal of systolic BP of 120 mm or less Will have him follow up with his PCP regularly on this in the future (3) Overweight (BMI 25.0-29.9): Code(s): E66.3 - Overweight Plan: Reinforced diet/exercise as tolerated/lose weight Plan To return in 4 months for his annual physical examination with his PCP Orders: Referrals Urology Referral N20.0 - Calculus of kidney Coding Level of Care Code Est Pt Level 3 (79086) Diagnoses Renal calculi N20.0 Elevated blood pressure reading without diagnosis of hypertension R03.0 Overweight (BMI 25.0-29.9) E66.3 Additional Codes JOCELINE-7 Assessment Billing - JOCELINE-7 Assessment Tool: JOCELINE-7 Assessment 25770 ([id number])
== END 2023-02-13 10:42 | disposition home or self-care (01) ==
PROVIDERS: PCP Internal Medicine; Visit Provider Internal Medicine
DX: N20.0 Calculus of kidney (principal); R03.0 Elevated blood-pressure reading, without diagnosis of hypertension; E66.3 Overweight
CPT/HCPCS: 99213

== ENCOUNTER 2023-03-13 15:34 | Emergency (ER) | payer OTHER, SELFPAY ==
--- NOTE | ~2023-03-13 | CT_ITS ---
EXAMINATION: CT ABDOMEN AND PELVIS WITHOUT CONTRAST CLINICAL INFORMATION: Left lower quadrant pain COMPARISON: Previous CT and renal ultrasound December 2022 TECHNIQUE: Multidetector volumetric imaging was performed from the superior aspect of the liver through the pubic symphysis. Sagittal and coronal reformatted images were obtained on the technologist's workstation. This CT examination was performed using dose optimization techniques as appropriate, variously including the following: *Automated exposure control *Adjustment of mA and/or kV according to patient size (this includes techniques or standardized protocols for targeted exams where dose is matched to indication/reason for exam; i.e. extremities or head) *Use of iterative reconstruction technique DLP: 532 mGy-cm FINDINGS: LUNG BASES: The visualized lung bases are unremarkable. LIVER, GALLBLADDER, AND BILIARY TREE: The liver is normal in size, shape, and attenuation. Stable small low-attenuation lesions probably representing cysts, largest measuring 1 cm adjacent to the gallbladder. No biliary ductal dilatation is present. The gallbladder is unremarkable with no evidence of radiopaque gallstones, gallbladder wall thickening, or obvious pericholecystic inflammatory changes. PANCREAS: Unremarkable. SPLEEN: Unremarkable. ADRENAL GLANDS: Unremarkable KIDNEYS AND URETERS: Moderate left hydronephrosis and ureteral dilatation from a 5 x 7 left proximal ureteral stone. This probably represents the same stone seen December 2022. This is currently at the L3-L4 level, previously at the L2 level. Small bilateral renal stones largest measuring BLADDER: Unremarkable. GASTROINTESTINAL TRACT: The small and large bowel are unremarkable. The appendix is unremarkable. ABDOMINAL WALL: No significant hernia is appreciated. LYMPH NODES: Normal. VASCULAR: Unremarkable. PELVIC VISCERA: Unremarkable. OSSEOUS STRUCTURES: Unremarkable. CT/CT abdomen pelvis wo IV con IMPRESSION: Moderate left hydronephrosis and ureteral dilatation from a 5 x 7 mm left proximal ureteral stone. This probably represents the same stone seen December 2022 with minimal progression down the left ureter. Small bilateral renal stones. Stable small probable liver cysts. Fleischner guidelines were followed.
[2023-03-13 15:59] VITALS: BP 145/80; PULSE 79; RESP 18; TEMP 37.6; O2SAT 97; BMI 28.7
--- NOTE | 2023-03-13 16:01 | ED.ABDPAIN ---
HPI - Abdominal Pain General Chief Complaint: Abdominal Pain Stated Complaint: abdominal pain Time Seen by Provider: 03/13/23 18:05 Source: patient Mode of arrival: ambulatory History of Present Illness HPI narrative: 38-year-old male presents with known stones since December and has follow-up with Urology on 04/17 but states that early this morning he began experiencing significant left flank pain with associated nausea and vomiting but denies any fevers or chills or dysuria. Patient reports that his pain is 5/10. Related Data Previous Rx's Medication Instructions Recorded tamsulosin 0.4 mg capsule (Flomax) 0.4 mg PO BEDTIME #5 caps 03/13/23 Allergies Allergy/AdvReac Type Severity Reaction Status Date / Time No Known Allergies Allergy Verified 02/13/23 10:35 Review of Systems Review of Systems Pertinent positives and negatives as stated in HPI PMFSH Past Medical History Source: nursing notes reviewed Medical History Renal calculi Overweight (BMI 25.0-29.9) GERD (gastroesophageal reflux disease) Surgical History No pertinent past surgical history Family History Family History Mother No problems noted. Father No problems noted. Social History Social History Housing: Apartment Alcohol intake: never Patient Tobacco Use Status: Never used Tobacco Smoked in Last 30 Days: No e-Cigarette/Vaping Use: Never Used Second Hand Smoke Exposure: No Use of substances other than those prescribed or required for medical reasons: No Advance Directives: No Advance Directives Information Provided: Yes service: No Current occupational status: unemployed Cognitive needs: No Hearing needs: No Vision needs: No Physical Exam ED Vital Signs: Vital Signs - 24 hr 03/13/23 15:59 03/13/23 18:12 03/13/23 18:33 Temperature 99.6 F 98.0 F 98.5 F Pulse Rate 79 75 74 Respiratory Rate 18 18 14 Blood Pressure 145/80 H 146/88 H 147/94 H Pulse Oximetry 97 97 97 Oxygen Delivery Method Room Air Room Air Room Air BMI result Body Mass Index 28.7 VITAL SIGNS: Reviewed. GENERAL: Well developed, well nourished, in no acute distress. HEAD: Normocephalic/atraumatic EYES: PERRLA, EOMI EARS: Ext canals without abnormality NOSE: Nares patent bilateral OROPHARYNX: no oral lesions noted, posterior pharynx clear NECK: Supple, no adenopathy LUNGS: Normal breath sounds. No adventitious sounds or accessory muscle use. SpO2<97> CARDIOVASCULAR: Regular rate and rhythm without noted murmurs ABDOMEN: Soft, non-tender, non-distended with bowel sounds. MUSCULOSKELETAL: No tenderness, deformities, or effusions noted on gross inspection. EXTREMITIES: No cyanosis, clubbing or edema. SKIN: Inspection of the skin reveals no rashes NEUROLOGIC: Alert and oriented x 4. Strength and sensation to light touch were grossly intact x 4. Course Course Course Narrative: RME - 38 yo [place] speaking male with history of kidney stones, obesity, GERD who is presenting to the ER for evaluation of constant LLQ pain along w/ vomiting that started last night. No urinary symptoms or fevers. +constipation Plan: labs, UA, CT scan Medical Decision Making Medical Decision Making MDM Narrative: 38-year-old male with history and clinical presentation, DDX: Renal colic, diverticulitis, pancreatitis, constipation. I reviewed all investigations and hematologic indices are significant for a mild leukocytosis that could be stress related in nature given his vomiting as he is afebrile and not tachycardic. Chemistry indices are grossly within normal limits and do not demonstrate an MELINDA although there is obvious worsening of creatinine. There are no electrolyte or liver enzyme abnormalities. And urinalysis demonstrates significant hematuria with associated wbc's without bacteria. CT scan is significant for persistent moderate left hydronephrosis and ureteral dilatation from a left proximal ureteral stone that measures 5 x 7 mm. 182: I discussed the case with Urology who recommends that if patient is able to be optimized and discharged the patient will be evaluated in the short term and will not have to wait until April 17 for his appointment. INTERVENTIONS: Zofran, 1 L of IV fluids, ketorolac, Tylenol and will re-evaluate. 1951: On re-evaluation patient is feeling much better, no longer nauseous and his pain has improved to 1/10. He understands that he will need to call the urology office 1st thing in the morning and that they will expedite the treatment for his stone. Differential Diagnosis Differential Diagnoses: The differential diagnosis associated with the presentation includes Please see the discussion above Admission/Observation Consideration of admission/observation: Escalation of care including admission/observation considered Please see the discussion above Consult Healthcare Provider Management of the patient was discussed with: Director Of Intelligence Please see the discussion above Lab Data MDM Lab Attestation statement: I reviewed the patient's lab results. Please see the discussion above 03/13/23 16:19 03/13/23 16:19 Labs: Lab Results 03/13/23 03/13/23 Range/Units 16:19 17:37 WBC 11.9 H (4.8-10.8) X10*3/uL RBC 5.21 (4.60-5.80) X10*6/uL Hgb 15.7 (14.0-18.0) g/dl Hct 46.6 (42.0-52.0) % MCV 89.4 (80.0-98.0) fL MCH 30.1 (27.0-33.0) pg MCHC 33.7 (31.0-36.0) g/dl RDW 14.6 (11.0-16.0) % Plt Count 252 (160-400) X10*3/uL MPV 10.1 (9.4-12.4) fL Immature Gran % (Auto) 0.3 (0.0-0.4) % Neut % (Auto) 84.7 H (45-73) % Lymph % (Auto) 8.7 L (20-40) % [place] % (Auto) 5.9 (2-11) % Eos % (Auto) 0.1 (0-4) % Baso % (Auto) 0.3 (0-2) % Lymph # (Auto) 1.0 L (1.2-4.9) X10*3/uL [place] # (Auto) 0.7 (0.1-1.2) X10*3/uL Eos # (Auto) 0.0 (0.0-0.4) X10*3/uL Baso # (Auto) 0.0 (0.0-0.2) X10*3/uL Abs Immat Gran (auto) 0.03 (0.00-0.03) X10*3/uL Absolute Neuts (auto) 10.1 H (2.0-8.3) x10*3/uL Absolute Nucleated RBC 0.000 (0.0-0.012) X10*3/uL Nucleated RBC % (auto) 0.0 (0.0-0.2) /100WBC Sodium 139 (135-145) mmol/L Potassium 3.8 (3.3-5.1) mmol/L Chloride 103 (96-108) mmol/L Carbon Dioxide 25 (22-29) mmol/L Anion Gap 15 (12-20) BUN 13 (9-16) mg/dL Creatinine 1.40 (0.5-1.4) mg/dL Estim Creat Clear Calc 81.8 Estimated GFR 57 Random Glucose 104 (60-115) mg/dL Calcium 10.1 (8.4-10.2) mg/dL Magnesium 2.2 (1.6-2.6) mg/dL Total Bilirubin 0.5 (0.0-1.0) mg/dL Direct Bilirubin 0.2 (0.0-0.5) mg/dL AST 25 (5-37) U/L ALT 18 (0-40) U/L Alkaline Phosphatase 74 (39-117) U/L Total Protein 8.2 H (6.5-8.0) g/dL Albumin 4.5 (3.5-5.0) g/dL Urine Color Yellow Urine Appearance Clear Urine pH 6.5 (5.0-9.0) Ur Specific [place] 1.020 (1.005-1.025) Urine Protein 100 (2+) H (Neg-Trace) mg/dL Urine Glucose (UA) Negative (Negative) mg/dL Urine Ketones Negative (Negative) mg/dL Urine Blood Moderate (2+) H (Negative) Urine Nitrite Negative (Negative) Ur Leukocyte Esterase Small (1+) H (Negative) Urine RBC >20 H (0-2) /HPF Urine WBC 11-20 H (0-5) /HPF Ur Squamous Epith Cells 0-2 (0-2) /HPF Urine Bacteria None Seen (None Seen) Hyaline Casts 3-5 (0-2) /LPF Medications Administered Discontinued Medications Generic Name Dose Route Start Last Admin Trade Name Freq PRN Reason Stop Dose Admin Sodium Chloride 1,000 mls @ 999 mls/hr 03/13/23 18:15 03/13/23 18:46 Ns IV 03/13/23 19:15 999 mls/hr .Q1H1M VAHE Administration Ketorolac Tromethamine 15 mg 03/13/23 18:14 03/13/23 18:43 Ketorolac Tromethamine 30 Mg/Ml Vial IVPUSH 03/13/23 18:15 15 mg ONCE ONE Administration Ondansetron HCl 4 mg 03/13/23 18:14 03/13/23 18:43 Ondansetron Hcl 4 Mg/2 Ml Vial IVPUSH 03/13/23 18:15 4 mg ONCE ONE Administration Discharge Plan Discharge Clinical Impression: Hydroureteronephrosis, Ureterolithiasis Patient Disposition: Home, Self-Care Instructions: Renal Colic (ED), Low Oxalate Diet (ED), Hydronephrosis (ED), Ureteral Stones (ED) Additional Instructions: 1. Contin?e bebiendo thor agua y use Tylenol e ibuprofeno de venta willie seg?n sea necesario para controlar el dolor. 2. Llame al consultorio del ur?logo a primera hora de la ma?allie. Regrese a la lakshmi de emergencias si los s?ntomas empeoran. 1. Continue to drink plenty of water and use shty-lbe-osmniej Tylenol and ibuprofen as needed for pain control. 2. Please call the office of the urologist 1st thing in the morning. Return to the ER for any worsening symptoms. Prescriptions: New tamsulosin [Flomax] 0.4 mg capsule 0.4 mg PO BEDTIME Qty: 5 0RF Referrals: Dipak Grant MD [Physician] - Allie Merchant MD [Primary Care Provider] - Print Language: [place]ayan
--- NOTE | 2023-03-13 16:19 | MHC.EDTECH ---
Patient urine sample collected and sent to lab ,pt not able to give urine sample at this time .
[2023-03-13 16:25] LABS: MANUAL DIFF FLAG NO
[2023-03-13 16:30] LABS: Basophils Percent Auto 0.3 % (0-2); Eosinophils Percent Auto 0.1 % (0-4); Hematocrit 46.6 % (42.0-52.0); Hemoglobin 15.7 g/dl (14.0-18.0); Imm Gran Abs Auto 0.03 X10*3/uL (0.00-0.03); Imm Gran Pct Auto 0.3 % (0.0-0.4); Lymphocytes Percent Auto 8.7 % (20-40); Mean Corpuscular HGB Conc 33.7 g/dl (31.0-36.0); Mean Corpuscular Hemoglobin 30.1 pg (27.0-33.0); Mean Corpuscular Volume 89.4 fL (80.0-98.0); Mean Platelet Volume 10.1 fL (9.4-12.4); Monocytes Absolute Auto 0.7 X10*3/uL (0.1-1.2); Monocytes Percent Auto 5.9 % (2-11); Neutrophils Absolute Auto 10.1 x10*3/uL (2.0-8.3); Neutrophils Percent Auto 84.7 % (45-73); Platelet Count 252 X10*3/uL (160-400); Red Blood Count 5.21 X10*6/uL (4.60-5.80); Red Cell Distribution Width 14.6 % (11.0-16.0); White Blood Count 11.9 X10*3/uL (4.8-10.8)
[2023-03-13 16:44] LABS: Alanine Aminotransferase 18 U/L (0-40); Albumin Level 4.5 g/dL (3.5-5.0); Alkaline Phosphatase 74 U/L (39-117); Anion Gap 15 (12-20); Aspartate Amino Transferase 25 U/L (5-37); Bilirubin Direct 0.2 mg/dL (0.0-0.5); Bilirubin Total 0.5 mg/dL (0.0-1.0); Blood Urea Nitrogen 13 mg/dL (9-16); Calcium 10.1 mg/dL (8.4-10.2); Carbon Dioxide 25 mmol/L (22-29); Chloride 103 mmol/L (96-108); Creatinine Clr Calc Pharmacy 81.8; Estimated Glomerular Filt Rate 57; Glucose Random 104 mg/dL (60-115); Magnesium 2.2 mg/dL (1.6-2.6); Potassium 3.8 mmol/L (3.3-5.1); Sodium 139 mmol/L (135-145); Total Protein 8.2 g/dL (6.5-8.0)
[2023-03-13 18:12] VITALS: BP 146/88; PULSE 75; RESP 18; TEMP 36.7; O2SAT 97
[2023-03-13 18:15] LABS: Appearance Urine Clear; Color Urine Yellow; Glucose Urine UA Negative (Negative); Leukocyte Esterase Urine Small (1+) (Negative); Nitrite Urine Negative (Negative); PH 6.5 (5.0-9.0); UMIC TRIGGER UACC YES; Urine Blood Moderate (2+) (Negative); Urine Ketones Negative (Negative); Urine Protein 100 (2+) mg/dL (Neg-Trace)
[2023-03-13 18:25] LABS: Bacteria Urine None Seen (None Seen); RBC Urine >20 /HPF (0-2); Squamous Epithelial Cell Urine 0-2 /HPF (0-2); UACC Culture Trigger YES
[2023-03-13 18:33] VITALS: BP 147/94; PULSE 74; RESP 14; TEMP 36.9; O2SAT 97
--- OUTSIDE RECORDS SUMMARY | 2023-03-13 18:33 | XMS_ITS | Continuity of Care Document ---
Author Name Unknown Organization [facility] Address [address] [place] [id number] Care Team Providers Care Test Lab Technician Name Role Phone Not on Staff, PCP Primary Care Physician Unavail able Encounter [facility] [place] Date(s): 05/25/21 - 05/25/[address] [address]- Discharge Disposition: A-D/C Walkout Attending Physician: Ankit Bowling MD Admitting Physician: Ankit Bowling MD Referring Physician: Not on Staff, Referring MD Allergies, Adverse Reactions, Alerts No Known Medication Allergies Vital Signs Most recent to oldest [Reference Range]: 1 Oxygen Saturation [94-100 %] 96 % (05/25/21 7:14 PM) Pulse Rate [55-90 bpm] 90 bpm (05/25/21 7:14 PM) Blood Pressure [90-138/55-84 mm Hg] 163/ 99mm Hg *H* (05/25/21 7:14 PM) Respiratory Rate [16-30 br/min] 20 br/mi n (05/25/21 7:14 PM) Temperature [96.8-100.4 DegF] 90.4 DegF *L* (05/25/21 7:14 PM) Mode of Delivery (Oxygen) Room air (05/25/21 7:14 PM) Temperature Route Oral (05/25/21 7:14 PM)
[2023-03-13] MEDS: ondansetron HCL 4 MG/2 ML VIAL IVPUSH (18:43)
[2023-03-13] MEDS: Ketorolac Tromethamine 30 MG/ML VIAL 15 MG IVPUSH (18:43)
[2023-03-13] MEDS: 0.9 % Sodium Chloride 1,000 ML 999 ML IV (18:46)
--- NOTE | 2023-03-13 18:53 | PC.NURSE ---
aox4. calm, coop. no resp distress. 08/03 abd pain- denies tenderness.
[2023-03-13 20:20] VITALS: BP 140/80; PULSE 74; RESP 18; TEMP 36.6; O2SAT 98
== END 2023-03-13 20:24 | disposition home or self-care (01) ==
PROVIDERS: Physician Assistant; Emergency Provider Student in an Organized Health Care Education/Training Program; PCP Internal Medicine
DX: N13.30 Unspecified hydronephrosis (principal); N20.1 Calculus of ureter; R10.9 Unspecified abdominal pain; R11.2 Nausea with vomiting, unspecified; Z79.899 Other long term (current) drug therapy
CPT/HCPCS: 36415; 74176; 80048; 80076; 81001; 83735; 85025; 87086; 96361; 96374; 96375; 99284; 99285; J1885; J2405

== ENCOUNTER 2023-03-18 14:02 | Outpatient (AMB) | payer OTHER, SELFPAY ==
--- NOTE | 2023-03-18 14:43 | A.OFFVIS_ITS ---
Intake Intake Visit Reasons: ER follow up/surgery add 03/19 Intake Note: Patient presents today for a follow-up on Pre Op: Meds- Tamsulosin Allergies to Antibiotic- No Known Allergies Blood Thinner- None Crystalizer Operator Required: No Accompanied by: Self / Same As Patient Allergies No Known Allergies Allergy (Verified 02/13/23 10:35) HPI HPI Comments History of Present Illness Details Bhavin is a 38-year-old male who presents today to the office for a follow-up. 03/18/23? Bhavin is a new zealander speaking male. Certified hourly sign language interpreter present. He is followed today for pre op evaluation. The patient was seen in the ED x 2 for left flank pain secondary to ureteral stone. The patient states he has passed stones in the past. He has never followed up with a Urologist. He is scheduled for surgery on 03/19/2023. He is scheduled for cystoscopy, retrograde, left, ureteroscopy and laser, stent on 03/19/2023. I reviewed the urine culture results from 03/13/23 which came back < 10,000 cfu/ml. I reviewed the CT abdomen/pelvis results from 03/13/23 revealed moderate left hydronephrosis and ureteral dilatation from a 5 x 7 mm left proximal ureteral stone. This probably represents the same stone seen December 2022 with minimal progression down the left ureter. Small bilateral renal stones. Stable small probable liver cysts. I have reviewed the CAT scan imaging with the patient. 03/18/23: Plan: Cystoscopy, retrograde, left, ureteroscopy and laser, stent Consent obtained [facility] Medical History Renal calculi Overweight (BMI 25.0-29.9) GERD (gastroesophageal reflux disease) Surgical History No pertinent past surgical history Family History Mother No problems noted. Father No problems noted. Social History Housing: Apartment Alcohol intake: never Patient Tobacco Use Status: Never used Tobacco e-Cigarette/Vaping Use: Never Used Second Hand Smoke Exposure: No service: No Current occupational status: unemployed Cognitive needs: No Hearing needs: No Vision needs: No Review of Systems Const All systems reviewed & are unremarkable except as noted in HPI and below Reports no additional complaints Eyes Reports no additional complaints ENT Reports no additional complaints Card Denies dyspnea Resp Denies cough and Denies dyspnea GI Reports no additional complaints Musc Reports no additional complaints Skin/Breast Denies rash and Denies unusual bruising Neuro Reports no additional complaints Psych Reports no additional complaints Endo Reports no additional complaints Roly/Lymph Reports no additional complaints Aller/Immun Reports no additional complaints Physical Exam Const General: healthy appearing, no acute distress and well developed Orientation/consciousness: patient oriented x3 HEENT Head: Yes normocephalic and Yes atraumatic Eyes Conjunctivae: conjunctivae normal Neck Neck: Yes normal visual inspection Chest Chest palpation & inspection: normal inspection of the chest Resp Effort & Inspection: normal respiratory effort Cardio Rate: regular rate GI Inspection: Yes normal to inspection Skin General skin exam: no rashes or lesions noted Neuro General: patient oriented x3 Extrem General: No pedal edema Psych Appearance: grossly normal Affect: normal affect Results Reviewed Results Reviewed: Date of Service: 03/13/23 EXAMINATION: CT ABDOMEN AND PELVIS WITHOUT CONTRAST?? CLINICAL INFORMATION: Left lower quadrant pain?? COMPARISON: Previous CT and renal ultrasound December 2022 FINDINGS: LUNG BASES: The visualized lung bases are unremarkable.?? LIVER, GALLBLADDER, AND BILIARY TREE: The liver is normal in size, shape, and attenuation. Stable small low-attenuation lesions probably representing cysts, largest measuring 1 cm adjacent to the gallbladder. No biliary ductal dilatation is present. The gallbladder is unremarkable with no evidence of radiopaque gallstones, gallbladder wall thickening, or obvious pericholecystic inflammatory changes.?? PANCREAS: Unremarkable.?? SPLEEN: Unremarkable.?? ADRENAL GLANDS: Unremarkable KIDNEYS AND URETERS: Moderate left hydronephrosis and ureteral dilatation from a 5 x 7 left proximal ureteral stone. This probably represents the same stone seen December 2022. This is currently at the L3-L4 level, previously at the L2 level. Small bilateral renal stones largest measuring BLADDER: Unremarkable.?? GASTROINTESTINAL TRACT: The small and large bowel are unremarkable. The appendix is unremarkable.?? ABDOMINAL WALL: No significant hernia is appreciated.?? LYMPH NODES: Normal. VASCULAR: Unremarkable. PELVIC VISCERA: Unremarkable.?? OSSEOUS STRUCTURES: Unremarkable.?? IMPRESSION: Moderate left hydronephrosis and ureteral dilatation from a 5 x 7 mm left proximal ureteral stone. This probably represents the same stone seen December 2022 with minimal progression down the left ureter. Small bilateral renal stones. Stable small probable liver cysts. Ordered:? Urine Culture? Procedure?Result?Verified?Site ? Urine Culture? Final?03/15/23 ? Report Result?< 10,000 cfu/ml Assessment & Plan Assessment & Plan (1) Bilateral kidney stones: Code(s): N20.0 - Calculus of kidney (2) Ureteral stone with hydronephrosis: Code(s): N13.2 - Hydronephrosis with renal and ureteral calculous obstruction Plan Cystoscopy, retrograde, left, ureteroscopy and laser, stent Consent obtained Patient Instructions: The patient had an opportunity to ask questions regarding treatment plan. All questions were answered. Imaging, Laboratory studies and physical exam results were discussed and reviewed in detail. No major barriers to understanding were identified. The patient expressed understanding and agreement with the above treatment plan.? ? ? The patient is aware they should contact our office by phone for worsening of their current condition or the appearance of new symptoms. Compliance is encouraged with any medications and followup testing that is ordered.? ? ? It is a privilege to be allowed the opportunity to participate in the urologic care of your patient. If you have any questions or concerns regarding treatment for the above conditions please do not hesitate to contact me. The office t elephone contact is [phone].? ? ? This note is constructed in part using voice recognition software. While every effort has been made to ensure accuracy deck engineer errors may have been included.? ? ? Yours sincerely,? ? ? Dipak Grant MD? ? Coding Level of Care Code New Pt Level 4 (08098) Diagnoses Bilateral kidney stones N20.0 Ureteral stone with hydronephrosis N13.2
== END 2023-03-18 15:18 | disposition home or self-care (01) ==
PROVIDERS: PCP Internal Medicine; Visit Provider Urology
DX: N13.2 Hydronephrosis with renal and ureteral calculous obstruction (principal)
CPT/HCPCS: 99204

== ENCOUNTER → 2023-03-18 14:02 | Outpatient (BNVA) | payer OTHER, SELFPAY | PROVIDERS: PCP Internal Medicine; Visit Provider Urology ==

== ENCOUNTER 2023-03-19 08:53 | Day surgery (SDC) | payer OTHER, SELFPAY ==
--- NOTE | 2023-03-18 10:18 | HO.ANESPROP2 ---
HPI - Anesthesia Eval Consult details Narrative: 38yo M for Left Cystoscopy, Ureteroroscopy, Retro, Laser,with poss stent PMFSH Active Problems Active Problems: All Active Problems (Updated 03/14/23 @ 00:01 by Background Lor) Elevated blood pressure reading without diagnosis of hypertension (Acute) Renal calculi (Acute) Overweight (BMI 25.0-29.9) (Acute) GERD (gastroesophageal reflux disease) (Acute) Past Medical History Medical History Renal calculi Overweight (BMI 25.0-29.9) GERD (gastroesophageal reflux disease) Family History Family History Mother No problems noted. Father No problems noted. Surgical History Surgical History No pertinent past surgical history Social History Social History Housing: Apartment Alcohol intake: never Patient Tobacco Use Status: Never used Tobacco e-Cigarette/Vaping Use: Never Used Second Hand Smoke Exposure: No service: No Current occupational status: unemployed Cognitive needs: No Hearing needs: No Vision needs: No Meds Allergies Allergy/AdvReac Type Severity Reaction Status Date / Time No Known Allergies Allergy Verified 02/13/23 10:35 Exam Exam Date and Time: March 18, 2023 1018 Pertinent Lab Results Pertinent Lab Results: Laboratory Tests 03/13/23 16:19 WBC 11.9 H Hgb 15.7 Hct 46.6 Plt Count 252 Sodium 139 Potassium 3.8 Chloride 103 Carbon Dioxide 25 BUN 13 Creatinine 1.40 Assessment and Plan Assessment Anesthesia Assessment: Chart Reviewed
--- NOTE | ~2023-03-19 | FL_ITS ---
EXAMINATION: XR FLUOROSCOPY WITH IMAGES CLINICAL INFORMATION: Cystoscopy special. COMPARISON: None available. TECHNIQUE: Fluoroscopy Supervised By: Dr. Grant. Fluoroscopy Time: 0.5 minutes. Cumulative Dose: 19.1 mGy. DAP: 0.332 Gycm2. Images: 2. FINDINGS: There is left-sided hydronephrosis. Images demonstrate placement of a left internal ureteral stent FL/FL guidance in OR IMPRESSION: Fluoroscopy guidance for urology procedure
[2023-03-19 09:15] VITALS: BMI 28.7
[2023-03-19] MEDS: Lactated Ringers 1,000 ML 100 ML IVCONT (09:15)
[2023-03-19 09:29] VITALS: BP 145/96; PULSE 79; RESP 18; TEMP 36.7; O2SAT 96
--- NOTE | 2023-03-19 09:38 | HO.ANESPROP2 ---
[facility] Active Problems Active Problems: All Active Problems (Updated 03/19/23 @ 01:40 by Dipak Grant MD) Ureteral stone with hydronephrosis (Acute) Bilateral kidney stones (Acute) Elevated blood pressure reading without diagnosis of hypertension (Acute) Renal calculi (Acute) Overweight (BMI 25.0-29.9) (Acute) GERD (gastroesophageal reflux disease) (Acute) Past Medical History Medical History Renal calculi Overweight (BMI 25.0-29.9) GERD (gastroesophageal reflux disease) Functional capacity: independent ambulation Family History Family History Mother No problems noted. Father No problems noted. Family history of problems with anesthesia: No Surgical History Surgical History Hx of wisdom tooth extraction History of Problems with Anesthesia: No Social History Social History Housing: Apartment Alcohol intake: never Patient Tobacco Use Status: Never used Tobacco e-Cigarette/Vaping Use: Never Used Second Hand Smoke Exposure: No Advance Directives: No Advance Directives Information Provided: Yes service: No Current occupational status: unemployed Cognitive needs: No Hearing needs: No Vision needs: No Meds Allergies Allergy/AdvReac Type Severity Reaction Status Date / Time No Known Allergies Allergy Verified 03/19/23 09:00 Active Medications: Current Medications Fentanyl (Fentanyl Citrate/Pf 100 Mcg/2 Ml Vial) 25 mcg IVPUSH Q5M PRN; Protocol PRN Reason: Pain, Moderate(Pain Scale 4-6) Lactated Ringer's (Lr) 1,000 mls @ 100 mls/hr IVCONT .Q10H VAHE Last Admin: 03/19/23 09:15 Dose: 100 mls/hr Ondansetron HCl (Ondansetron Hcl 4 Mg/2 Ml Vial) 4 mg IVPUSH ONCE PRN PRN Reason: Nausea and Vomiting Oxycodone HCl (Oxycodone Hcl Immed Release 5 Mg Tablet) 5 mg PO ONCE PRN PRN Reason: Pain, Severe (Pain Scale 7-10) Home Medications Medication Instructions Recorded Confirmed Last Taken Type No Known Home Meds 03/19/23 03/19/23 Unknown History Exam Exam Date and Time: March 19, 2023 0938 Height,Weight and Vital Signs: Height 5 ft 10 in Weight 90.718 kg Last Vital Signs Temp 98.0 F 03/19/23 09:29 Pulse 79 03/19/23 09:29 Resp 18 03/19/23 09:29 BP 145/96 H 03/19/23 09:29 Pulse Ox 96 03/19/23 09:29 O2 Del Method Room Air 03/19/23 09:29 Airway Mallampati Class: III TM Dist: >3cm Neck ROM: Full Loose/Missing/Broken Teeth: No Heart: rrr Lungs: clear Assessment and Plan Final Anesthetic Review Family History of Problems with Anesthesia: No History of Problems with Anesthesia: No NPO: Yes ASA Class: II Final Preanesthetic Review: No Changes in Pt Med Stat, Meds/Allgs Chart Reviewed, Consent Obtained/Reviewed and Anes Risks/Benef Reviewed Patient Risk: Intermediate Procedure Risk: Low Anesthetic Plan Anesthetic Plan: GA Disposition: Standard PACU, Extended PACU, Inp. Admit - IMC and Inp. Admit - ICU
--- NOTE | 2023-03-19 09:53 | MHC.SHP ---
Pre-Procedural Eval Section A Date of Service: 03/19/23 The patient is an INPATIENT: No The History & Physical has been completed within 30 days and I have reviewed it.: Yes Section B Chief Complaint: Calculus of kidney Allergies: Allergies Allergy/AdvReac Type Severity Reaction Status Date / Time No Known Allergies Allergy Verified 03/19/23 09:00 Plan Diagnosis/Plan: Unchanged I have reviewed the history and physical and performed a pertinent physical examination on my patient. No changes have occurred unless specified. Plan for Cystoscopy, Left ureteroscopy, retrograde, possible laser lithotripsy, possible ureteral stent. Risks discussed included but not limited to, possible need to repeat procedure if stone is not completely fragmented, Irritative voiding symptoms, bladder spasms, urgency, blood in urine. Time Spent With Patient Time: Total time managing care of this patient today ____ minutes.
[2023-03-19 11:17] VITALS: BP 141/94; PULSE 79; RESP 20; TEMP 36.1; O2SAT 100
[2023-03-19 11:22] VITALS: BP 142/91; PULSE 71; RESP 18; O2SAT 100
[2023-03-19 11:25] VITALS: BP 151/102; PULSE 73; RESP 20; O2SAT 100
[2023-03-19 11:30] VITALS: BP 153/100; PULSE 75; RESP 18; O2SAT 100
[2023-03-19] MEDS: Phenazopyridine HCL 200 MG TABLET PO (11:36)
[2023-03-19 11:45] VITALS: BP 147/92; PULSE 77; RESP 16; TEMP 36.3; O2SAT 99
--- NOTE | 2023-03-19 12:46 | W.PM.OPN ---
Operative Note Operative Note Date of Service: 03/19/23 Narrative: PreOperative Diagnosis:?? Left ureteral stone Post Operative Diagnosis:?? left ureteral stone Procedure: - cystoscopy, left retrograde, left ureteroscopy laser lithotripsy stent insertion, 6 [place]ican by multi length cm Surgeon:?Dr Dipak Grant Anesthesia:? General Procedure: After informed consent was verified the patient was brought to the operating placed on the OR table in supine position.? General Anesthesia was administered per protocol.? The patient was placed in lithotomy position, prepped and draped in the usual sterile fashion.? Safety pause time-out and side of surgery confirmed.? Antibiotics confirmed. 2% lidocaine jelly 10 mL was passed transurethrally. A 22 [place] cystoscope was inserted transurethrally, the bulbous urethra was within normal limits. The prostatic urethra was nonobstructive. The bladder was visualized.? Both ureteric orifices were in normal position. An open-ended ureteral catheter was passed into the left ureteral orifice and a retrograde examination was performed. There was a filling defect in the upper 3rd of the mid ureter and dilatation of the proximal ureter and renal pelvis and calyces. A guidewire was passed through the ureteral catheter into the kidney. The balloon dilator size 12 fr x 4 cm was passed over the guide -wire the balloon was inflated to 10 mmHg and the intramural ureter was dilated for 45 seconds. The balloon was deflated and removed. After removing the balloon dilator a 2nd guidewire was then passed into the kidney to use as a safety. The cystoscope was removed, leaving both guidewires in place. One guidewire was used as the safety and was attached to the draping. The semi rigid ureteroscope was passed over one of the guidewires to the level of the stone in the ureter. One guidewire was then removed. Laser lithotripsy of the stone was done using the 365 fiber with a settings 0.8 joules by 6 hertz alternating with 0.5 J by 20 hertz. There was good fragmentation of the stone. The 0 degree basket was passed through the ureteroscope, small fragments were removed to send for analysis. The ureteroscope was removed. The cystoscope was passed over the safety guidewire. A? 6 [place] by multi length cm stent was placed into the ureter and renal pelvis under a combination of fluoroscopy and direct visualization. The bladder was emptied.? The rigid cystoscope was removed. ? The patient tolerated the procedure well and was brought to the recovery room in stable condition. Complications: None Drains: Ureteral stent as dictated above
[2023-03-23 16:39] LABS: Stone Source LEFT URETERAL STONE
== END 2023-03-19 12:21 | disposition home or self-care (01) ==
PROVIDERS: PCP Internal Medicine; Visit Provider Urology
PROC: (CPT 52356; principal; 2023-03-19 10:40)
DX: N13.2 Hydronephrosis with renal and ureteral calculous obstruction (principal); R03.0 Elevated blood-pressure reading, without diagnosis of hypertension; K21.9 Gastro-esophageal reflux disease without esophagitis
CPT/HCPCS: 52356; 82365; 88300; C1726; C1769; C2617; J0690; Q9967

== ENCOUNTER → 2023-03-19 08:53 | Outpatient (BNV) | payer OTHER, SELFPAY | PROVIDERS: PCP Internal Medicine; Visit Provider Urology | DX: N20.1 Calculus of ureter (principal) | CPT/HCPCS: 52356; 74420 ==

== ENCOUNTER 2023-04-05 09:01 | Outpatient (AMB) | payer OTHER, SELFPAY ==
--- NOTE | 2023-04-05 09:03 | A.OFFVIS_ITS ---
Intake Intake Visit Reasons: Stent Removal Intake Note: Patient presents today for a CYSTOSCOPY/STENT REMOVAL Procedure: Meds: Pyridium Allergies to Antibiotic: No Known Allergies Blood Thinner: None Disposable Uro-G Cystoscope Cannula: Lot: [id number] Exp: 10/03/2024 Tube Balancer Required: Yes Tube Balancer Language: Positive Printer Operator Name: CRISPIN Gates/AMISH BOWSER Information Interpreted: non-clinical & clinical Package Sealer Machine: Package Sealer Machine Present Accompanied by: Self / Same As Patient Allergies No Known Allergies Allergy (Verified 03/19/23 09:00) HPI HPI Comments History of Present Illness0 Details Bhavin is a 38-year-old male who presents today to the office for a follow-up. 04/05/2023? He is followed today for stent removal. He is status post Cystoscopy, retrograde, left, ureteroscopy and laser, stent done on 03/19/2023. He states he has been doing well. I reviewed blood work from 10/18/2022 revealed serum calcium was 9.7 and from 03/13/2023 was 10.1. Review of charts: I reviewed the urine culture results from 03/13/23 which came back < 10,000 cfu/ml. I reviewed the CT abdomen/pelvis results from 03/13/23 revealed moderate left hy dronephrosis and ureteral dilatation from a 5 x 7 mm left proximal ureteral stone. Small B/L renal stones 04/05/2023: Plan: Stent was removed today in the office. Metabolic work up and 24-hour urine collection test was ordered. Follow-up in 3 months. [facility] Medical History Renal calculi Overweight (BMI 25.0-29.9) GERD (gastroesophageal reflux disease) Surgical History Hx of cystoscopy Hx of wisdom tooth extraction Family History Mother No problems noted. Father No problems noted. Social History Housing: Apartment Alcohol intake: never Patient Tobacco Use Status: Never used Tobacco e-Cigarette/Vaping Use: Never Used Second Hand Smoke Exposure: No service: No Current occupational status: unemployed Cognitive needs: No Hearing needs: No Vision needs: No Review of Systems Const All systems reviewed & are unremarkable except as noted in HPI and below Reports no additional complaints Eyes Reports no additional complaints ENT Reports no additional complaints Card Denies dyspnea Resp Denies cough and Denies dyspnea GI Reports no additional complaints Musc Reports no additional complaints Skin/Breast Denies rash and Denies unusual bruising Neuro Reports no additional complaints Psych Reports no additional complaints Endo Reports no additional complaints Roly/Lymph Reports no additional complaints Aller/Immun Reports no additional complaints Office Procedures Cystoscopy Consent Discussed risk and benefit or proposed procedure with the patient. Information consent for procedure given to the patient. Discussed technical aspects, risks, benefits and alternatives in full. Addressed all of the patient's questions and concerns regarding the procedure. The patient demonstrated knowledge and understanding. They wish to proceed with this procedure. Preparation The patient was prepped in the usual manner. A motion graphics artist was present and in the room. Genitalia was prepped with betadine solution in a sterile manner. Lidocaine Jelly 2% was placed into the urethra and 16Fr flexible Olympus cystoscope was inserted into the meatus after adequate lubrication. Procedure Time out per protocol performed. Bladder Inspection Cystoscopy findings: mild edema right ureteral orifice which is expected, distal end of ureteral stent visualized. The grasping forceps were used and the stent was removed without difficulty. [id number] with stent removal DISPOSABLE SCOPE URO-G FLEXIBLE SCOPE Procedure code (CPT) selection complete Office Meds lidocaine HCl 2 % mucosal jelly in applicator Performing Provider: Dipak Grant MD Performing Location: [facility] [place] [facility] Administered by: Jamaica Flores RN on 04/05/23 09:11 Dose Route Admin Location Dispensed Lot Number Expiration Date [facility] Auto Service Advisor 10 mL intra-urethral 20 mL naproxen 500 mg tablet Performing Provider: Dipak Grant MD Performing Location: [facility] [place] [facility] Administered by: Jamaica Flores RN on 04/05/23 09:11 Dose Route Admin Location Dispensed Lot Number Expiration Date NDC Auto Service Advisor 500 mg PO 1 tab ciprofloxacin HCl 500 mg tablet Performing Provider: Dipak Grant MD Performing Location: [facility] [place] Urology [facility] Administered by: Jamaica Flores RN on 04/05/23 09:11 Dose Route Admin Location Dispensed Lot Number Expiration Date NDC Auto Service Advisor 500 mg PO 1 tab Results Reviewed Results Reviewed: Diagnosis Left ureteral stone: Calculous material. Gross examination only. Sent for chemical analysis. Please see laboratory portion of the EMR for outside report from [facility]. Clinical History Calculus of kidney Material Received Left utereral stone Gross Description Received fresh on blood-stained gauze and mesh labeled ?left ureteral stone? are 3 minute ulloa calculi which are forwarded for chemical analysis. No soft tissue is identified. Gross description only. Date of Service: 03/13/23 EXAMINATION: CT ABDOMEN AND PELVIS WITHOUT CONTRAST CLINICAL INFORMATION: Left lower quadrant pain COMPARISON: Previous CT and renal ultrasound December 2022 FINDINGS: LUNG BASES: The visualized lung bases are unremarkable. LIVER, GALLBLADDER, AND BILIARY TREE: The liver is normal in size, shape, and attenuation. Stable small low-attenuation lesions probably representing cysts, largest measuring 1 cm adjacent to the gallbladder. No biliary ductal dilatation is present. The gallbladder is unremarkable with no evidence of radiopaque gallstones, gallbladder wall thickening, or obvious pericholecystic inflammatory changes. PANCREAS: Unremarkable. SPLEEN: Unremarkable. ADRENAL GLANDS: Unremarkable KIDNEYS AND URETERS: Moderate left hydronephrosis and ureteral dilatation from a 5 x 7 left proximal ureteral stone. This probably represents the same stone seen December 2022. This is currently at the L3-L4 level, previously at the L2 level. Small bilateral renal stones largest measuring BLADDER: Unremarkable. GASTROINTESTINAL TRACT: The small and large bowel are unremarkable. The appendix is unremarkable. ABDOMINAL WALL: No significant hernia is appreciated. LYMPH NODES: Normal. VASCULAR: Unremarkable. PELVIC VISCERA: Unremarkable. OSSEOUS STRUCTURES: Unremarkable. IMPRESSION: Moderate left hydronephrosis and ureteral dilatation from a 5 x 7 mm left proximal ureteral stone. This probably represents the same stone seen December 2022 with minimal progression down the left ureter. Small bilateral renal stones. Stable small probable liver cysts Assessment & Plan Assessment & Plan (1) Bilateral kidney stones: Code(s): N20.0 - Calculus of kidney (2) Ureteral stone with hydronephrosis: Code(s): N13.2 - Hydronephrosis with renal and ureteral calculous obstruction Plan Stent was removed today in the office. Metabolic work up and 24-hour urine collection test was ordered. Follow-up in 3 months. Orders: Orders AMB Cystoscopy Today N13.2 - Hydronephrosis with renal and ureteral calculous obstruction, N20.0 - Calculus of kidney Patient Instructions: The patient had an opportunity to ask questions regarding treatment plan. All questions were answered. Imaging, Laboratory studies and physical exam results were discussed and reviewed in detail. No major barriers to understanding were identified. The patient expressed understanding and agreement with the above treatment plan. The patient is aware they should contact our office by phone for worsening of their current condition or the appearance of new symptoms. Compliance is encouraged with any medications and followup testing that is ordered. It is a privilege to be allowed the opportunity to participate in the urologic care of your patient. If you have any questions or concerns regarding treatment for the above conditions please do not hesitate to contact me. The office telephone contact is [phone]. This note is constructed in part using voice recognition software. While every effort has been made to ensure accuracy airport attendant errors may have been included. Yours sincerely, Dipak Grant MD Coding Level of Care Code Procedure Only Diagnoses Bilateral kidney stones N20.0 Ureteral stone with hydronephrosis N13.2 CPT Codes Cystoscopy - CPT: [id number] with stent removal ([id number])
== END 2023-04-05 10:00 | disposition home or self-care (01) ==
PROVIDERS: PCP Internal Medicine; Visit Provider Urology
DX: N13.2 Hydronephrosis with renal and ureteral calculous obstruction (principal); Z96.0 Presence of urogenital implants
CPT/HCPCS: 52310

== ENCOUNTER → 2023-04-05 09:01 | Outpatient (BNVA) | payer OTHER, SELFPAY | PROVIDERS: PCP Internal Medicine; Visit Provider Urology | DX: N20.0 Calculus of kidney (principal); N13.2 Hydronephrosis with renal and ureteral calculous obstruction | CPT/HCPCS: 52310 ==

== ENCOUNTER → 2023-07-03 14:08 | Outpatient (BNVA) | payer SELFPAY | PROVIDERS: PCP Internal Medicine; Visit Provider Physician Assistant | DX: Z02.79 Encounter for issue of other medical certificate (principal) ==

== ENCOUNTER 2024-06-17 16:58 | Outpatient (AMB) | payer SELFPAY ==
--- NOTE | 2024-06-17 17:05 | MHC.PC.OV ---
Vital Signs 06/17/24 17:06 Height 5 ft 10 in Weight 196 lb BMI 28.1 BP 160/90 H Blood Pressure Location Lt brachial Position Sitting Intake Visit Reasons: PH Shower Enclosure Installer Required: Yes Shower Enclosure Installer Language: Sales Utility Representative Name: Allie Mendosa MD Information Interpreted: non-clinical & clinical Accompanied by: Self / Same As Patient Allergies No Known Allergies Allergy (Verified 06/17/24 17:14) Medication List - Last Reconciled 06/17/24 by Allie Mendosa MD No Known Home Meds Tobacco use date assessed: 06/17/24 Dental Screening Dental Screen Date: 06/17/24 Did you have a dental visit in the last 12 months?: No Did you have a dental problem in the last 6 months where you did not have access to dental care?: No Was dental information given to patient?: Patient has dentist HPI HPI Comments History of Present Illness Details The patient is a 39-year-old male presenting with elevated blood pressure. Currently, the patient exhibits a blood pressure reading of 160/90 mmHg during today's visit. He denies any chest pain, shortness on breath or palpitations. He did not know that he had elevated blood pressure. I will start him on losartan. Blood pressure will be recheck in 3 weeks by nurse navigator. Also has history of nephrolithiasis follow by Urology. [facility] Medical History (Updated 06/17/24 @ 17:22 by Allie Mendosa MD) Renal calculi Overweight (BMI 25.0-29.9) GERD (gastroesophageal reflux disease) Surgical History Hx of cystoscopy Hx of wisdom tooth extraction Family History Mother No problems noted. Father No problems noted. Social History Housing: Apartment Alcohol intake: never Patient Tobacco Use Status: Never used Tobacco e-Cigarette/Vaping Use: Never Used Second Hand Smoke Exposure: No service: No Current occupational status: unemployed Cognitive needs: No Hearing needs: No Vision needs: No Questionnaire PHQ-9 Over the last 2 weeks, how often have you been bothered by any of the following problems? 1. Little interest or pleasure in doing things: not at all 2. Feeling down, depressed, or hopeless: not at all 3. Trouble falling or staying asleep, or sleeping too much: not at all 4. Feeling tired or having little energy: not at all 5. Poor appetite or overeating: not at all 6. Feeling bad about yourself - or that you are a failure or have let yourself or your family down: not at all 7. Trouble concentrating on things, such as reading the newspaper or watching television: not at all 8. Moving or speaking so slowly that other people could have noticed. Or the opposite - being so fidgety or restless that you have been moving around a lot more than usual: not at all 9. Thoughts that you would be better off or of hurting yourself in some way: not at all Total score: 0 Depression Screening Interpretation: Negative Depression Screening Done: Yes 70739 - PHQ-9 Billing: Yes Source: Developed by Drs. Chet Lara, Mary Fierro, Eloy Salgado and colleagues, with an educational ceci from [employer]. Thrive Questionnaire Date Thrive assessed: 06/17/24 I am a: Patient What is your living situation today?: I have a steady place to live Within the past 12 months, did the food you bought not last and you didn't have the money to get more?: Never true Within the past 12 months, did you worry whether your food would run out before you got money to buy more?: Never true Do you have trouble paying for medicines?: No Do you have trouble getting transportation to medical appointments?: No Do you have trouble paying your heating and electricity bill?: No Do you have trouble taking care of your child, family member or friend?: No Do you have trouble with day-to-day activities such as bathing, preparing meals, shopping, managing finances, etc.?: No Are you currently unemployed and looking for a job?: No Are you interested in more education?: No Please select the resources that you would like help with: None Currently or been in a relationship where the following occur: No concerns reported THRIVE Score: 0 AUDIT C Alcohol Use Questionnaire (AUDIT-C) 1. How often do you have a drink containing alcohol?: Monthly or less 2. How many drinks containing alcohol do you have on a typical day when you are drinking?: 1 or 2 3. How often do you have six or more drinks on one occasion?: Never Total Score: 1 Score Reviewed/Action Taken: Yes JOCELINE-7 AMB Questionnaire JOCELINE-7 Date JOCELINE - 7 assessed: 06/17/24 Feeling nervous, anxious, or on edge: 0 = Not at all Not being able to stop or control worryin = Not at all Worrying too much about different things: 0 = Not at all Trouble relaxin = Not at all Being so restless that it is hard to sit still: 0 = Not at all Becoming easily annoyed or irritable: 0 = Not at all Feeling afraid as if something awful might happen: 0 = Not at all Total JOCELINE-7 score (0-4 normal; 5-9 mild; 10-14 moderate; 15-21 severe): 0 Source: Developed by Drs. Chet Lara, Mary Fierro, Eloy Salgado and colleagues, with an educational ceci from [employer]. JOCELINE-7 Assessment Billing JOCELINE-7 Assessment Tool: JOCELINE-7 Assessment 57018 Review of Systems Const All systems reviewed & are unremarkable except as noted in HPI and below Card Denies chest pain at rest, Denies chest pain with activity, Denies edema, Denies irregular heart rhythm, Denies claudication, Denies dyspnea, Denies dyspnea on exertion, Denies orthopnea, Denies paroxysmal nocturnal dyspnea and Denies slow heart rate Resp Denies cough, Denies dyspnea and Denies dyspnea on exertion GI Denies abdominal pain, Denies change in bowel habits, Denies excessive flatus, Denies nausea and Denies vomiting Neuro Denies behavioral changes and Denies lack of coordination Psych Denies behavioral changes Physical exam (Primary Care) Vital Signs: Last Vital Signs BP 160/90 H 06/17/24 17:06 BMI result Body Mass Index 28.1 Tobacco/Smoking Status: Tobacco use Status Tobacco use date assessed 06/17/24 06/17/24 17:11 Patient Tobacco Use Status Never used Tobacco 06/17/24 17:11 e-Cigarette/Vaping Use Never Used 06/17/24 17:11 PHQ-9: PHQ-9 Score PHQ-9: Total score 0 06/17/24 17:17 Depression Screening Interpretation: Negative Thrive Assessment: Date of Thrive Assessment Date Thrive assessed 06/17/24 06/17/24 17:11 Currently or been in a relationship where the following occur: No concerns reported Resp Effort & Inspection: normal respiratory effort Auscultation: clear to auscultation bilaterally Cardio Jugular venous distension: no JVD Rate: regular rate Rhythm: regular rhythm Heart sounds: S1 normal heart sound present and S2 normal heart sound present Extrem General: Yes full ROM Office Procedures Flu Questionnaire Does the patient have a severe egg allergy?: No Immunizations Fluarix Triv [id number] (PF) 45 mcg (15 mcg x 3)/0.5 mL IM syringe Performing Provider: Allie Mendosa MD [facility] Documented (not given) by: CRISPIN Barker on 06/17/24 17:12 Reason Not Given: Patient Refused Coding Level of Care Code Est Pt Level 3 (39530) Complex EM visit Add On G2211 Diagnoses Essential hypertension I10 Bilateral kidney stones N20.0 Additional Codes JOCELINE-7 Assessment Billing - JOCELINE-7 Assessment Tool: JOCELINE-7 Assessment 35440 ([id number]) PHQ-9 - 74942 - PHQ-9 Billing: Yes ([id number]) Time Spent (min) 19 Assessment & Plan Assessment & Plan (1) Essential hypertension: Code(s): I10 - Essential (primary) hypertension Category: Medical (2) Bilateral kidney stones: Code(s): N20.0 - Calculus of kidney Category: Medical Plan - Continue monitoring and management of essential hypertension. - Advise laboratory tests in upcoming August visit as previously planned. Patient was informed and verbally consented to the use of an ambient scribe for clinic note documentation during this visit. During our discussion, I addressed the slightly elevated blood pressure reading of 160/90 mmHg today. I reiterated the importance of continuing with routine monitoring and management of hypertension. Planned laboratory investigations are scheduled for August to further evaluate and adjust treatment if necessary. Follow-up and adjustments to his management plan will be made based on these results. Orders: Orders Lipid Panel Today E78.5 - Hyperlipidemia, unspecified, I10 - Essential (primary) hypertension Complete Blood Count Auto Diff Today D72.829 - Elevated white blood cell count, unspecified Influenza [id number] Immunization Today Z23 - Encounter for immunization Comprehensive [place]. Panel Fast Today I10 - Essential (primary) hypertension Medications: New losartan 25 mg PO DAILY 90 days 90 tabs 1RF I10 - Essential (primary) hypertension Patient Instructions: - Monitor blood pressure regularly at home. - Come back for laboratory tests and further evaluation in August. - Continue with any prescribed antihypertensive medications as directed.
[2024-06-17 17:06] VITALS: BP 160/90; BMI 28.1
--- OUTSIDE RECORDS SUMMARY | 2024-06-17 18:28 | XMS_ITS | Clinical Summary ---
Author Organization [facility] ity Address [address] [place] [address] Care Team Providers Care Treater Name Role Phone Unavailable Primary Care Provider Unavailabl e Social History Tobacco Use Types Packs/Day Years Used Date Smoking Tobacco: Never Assessed Sex and Gender Information Value Date Recorded Sex Assigned at Not on file Gender Identity Not on file Sexual Orientation Not on file Plan of Treatment Health Maintenance Due Date Last Done Comments DTaP,Tdap,and Td Vaccines (1 - Tdap) 2005 Hepatitis B Vaccines (1 of 3 - 19+ 3-dose series) 2005 COVID-19 Vaccine (2023-2 5 season) 2024 Influenza Vaccine (#1) 2024 HIB Vaccines Aged Out No longer eligi ble based on patient's age to complete this topic HPV Vaccines Aged Out No longer eligi ble based on patient's age to complete this topic Hepatitis A Vaccines Aged Out No long er eligible based on patient's age to complete this topic IPV Vaccines Aged Out No longer eligi ble based on patient's age to complete this topic MMR Vaccines Aged Out No longer eligi ble based on patient's age to complete this topic Meningococcal ACWY Vaccine Aged Out N o longer eligible based on patient's age to complete this topic Pneumococcal Vaccine: Pediat rics (0 to 5 Years) and At-Risk Patients (6 to 64 Years) Aged Out No longer eligible b ased on patient's age to complete this topic RSV Immunization Patients Un jefferson 20 months Aged Out No longer eligible b ased on patient's age to complete this topic Varicella Vaccines Aged Out No longer eligible based on patient's age to complete this topic
== END 2024-06-17 17:21 | disposition home or self-care (01) ==
PROVIDERS: PCP Internal Medicine; Visit Provider Internal Medicine
DX: I10 Essential (primary) hypertension (principal); N20.0 Calculus of kidney; Z23 Encounter for immunization

== ENCOUNTER → 2024-06-17 16:58 | Outpatient (BNVA) | payer SELFPAY | PROVIDERS: PCP Internal Medicine; Visit Provider Internal Medicine | DX: I10 Essential (primary) hypertension (principal); N20.0 Calculus of kidney; Z28.21 Immunization not carried out because of patient refusal | CPT/HCPCS: 90471; 96127; 99212 ==

== ENCOUNTER 2024-08-26 14:06 | Outpatient (AMB) | payer OTHER, SELFPAY ==
--- NOTE | 2024-08-26 14:11 | A.OFFPC_ITS ---
Vital Signs 08/26/24 14:13 Height 5 ft 10 in Weight 199 lb BMI 28.6 BP 132/86 Blood Pressure Location Lt brachial Position Sitting Intake Visit Reasons: Annual Exam Intake Note: Patient here for an annual physical exam Marble Coper Required: No Accompanied by: Self / Same As Patient Allergies No Known Allergies Allergy (Verified 08/26/24 14:21) Medication List - Last Reconciled 08/26/24 by Allie Mendosa MD losartan 25 mg PO DAILY 90 days Tobacco use date assessed: 06/17/24 Dental Screening Dental Screen Date: 06/17/24 HPI HPI Comments History of Present Illness Details The patient is a 39-year-old male presenting for a routine annual physical examination. He is receiving treatment with Losartan 25 mg for essen tial hypertension, which is well-controlled, as evidenced by normal blood pressure readings. The patient has a history of nephrolithiasis and has undergone a cystoscopy related to this condition. No other previous surgeries have been noted. The patient reports no allergies to medications, denies a history of tobacco or alcohol use, and has no symptoms of depression or anxiety. Laboratory work for cholesterol, glucose, renal, and liver function is planned. The patient is due for a tetanus booster vaccine as it has been about ten years since the last administration. - Administer Tdap vaccine during this vi sit - Routine laboratory tests recommended f or cholesterol, glucose, renal, and liver function - Continue Losartan 25 mg for hypertensi on management PFSH Medical History Renal calculi Overweight (BMI 25.0-29.9) GERD (gastroesophageal reflux disease) Surgical History Hx of cystoscopy Hx of wisdom tooth extraction Family History (Updated 08/26/24 @ 14:25 by Allie Mendosa MD) Mother No problems noted. Father CAD (coronary artery disease) Social History Housing: Apartment Alcohol intake: never Patient Tobacco Use Status: Never used Tobacco e-Cigarette/Vaping Use: Never Used Second Hand Smoke Exposure: No service: No Current occupational status: unemployed Cognitive needs: No Hearing needs: No Vision needs: No Questionnaire PHQ-9 Over the last 2 weeks, how often have you been bothered by any of the following problems? 1. Little interest or pleasure in doing things: not at all 2. Feeling down, depressed, or hopeless: not at all 3. Trouble falling or staying asleep, or sleeping too much: not at all 4. Feeling tired or having little energy: not at all 5. Poor appetite or overeating: not at all 6. Feeling bad about yourself - or that you are a failure or have let yourself or your family down: not at all 7. Trouble concentrating on things, such as reading the newspaper or watching television: not at all 8. Moving or speaking so slowly that other people could have noticed. Or the opposite - being so fidgety or restless that you have been moving around a lot more than usual: not at all 9. Thoughts that you would be better off or of hurting yourself in some way: not at all Total score: 0 Depression Screening Interpretation: Negative Depression Screening Done: Yes 83182 - PHQ-9 Billing: Yes Source: Developed by Drs. Chet Lara, Mary Fierro, Eloy Salgado and colleagues, with an educational ceci from [employer]. Thrive Questionnaire Date Thrive assessed: 08/26/24 I am a: Patient What is your living situation today?: I have a steady place to live Within the past 12 months, did the food you bought not last and you didn't have the money to get more?: I choose not to answer this question Within the past 12 months, did you worry whether your food would run out before you got money to buy more?: Never true Do you have trouble paying for medicines?: No Do you have trouble getting transportation to medical appointments?: No Do you have trouble paying your heating and electricity bill?: No Do you have trouble taking care of your child, family member or friend?: No Do you have trouble with day-to-day activities such as bathing, preparing meals, shopping, managing finances, etc.?: No Are you currently unemployed and looking for a job?: No Are you interested in more education?: No Please select the resources that you would like help with: None Currently or been in a relationship where the following occur: No concerns reported THRIVE Score: 0 AUDIT C Alcohol Use Questionnaire (AUDIT-C) 1. How often do you have a drink containing alcohol?: Never Total Score: 0 Score Reviewed/Action Taken: No JOCELINE-7 AMB Questionnaire JOCELINE-7 Date JOCELINE - 7 assessed: 08/26/24 Feeling nervous, anxious, or on edge: 0 = Not at all Not being able to stop or control worryin = Not at all Worrying too much about different things: 0 = Not at all Trouble relaxin = Not at all Being so restless that it is hard to sit still: 0 = Not at all Becoming easily annoyed or irritable: 0 = Not at all Feeling afraid as if something awful might happen: 0 = Not at all Total JOCELINE-7 score (0-4 normal; 5-9 mild; 10-14 moderate; 15-21 severe): 0 Source: Developed by Drs. Chet Lara, Mary Fierro, Eloy Salgaod and colleagues, with an educational ceci from [employer]. JOCELINE-7 Assessment Billing JOCELINE-7 Assessment Tool: JOCELINE-7 Assessment 02979 Review of Systems Const All systems reviewed & are unremarkable except as noted in HPI and below Card Denies chest pain at rest, Denies chest pain with activity, Denies edema, Denies irregular heart rhythm, Denies claudication, Denies dyspnea, Denies dyspnea on exertion, Denies orthopnea, Denies paroxysmal nocturnal dyspnea and Denies slow heart rate Resp Denies cough, Denies dyspnea and Denies dyspnea on exertion GI Denies abdominal pain, Denies change in bowel habits, Denies excessive flatus, Denies nausea and Denies vomiting Denies urinary hesitancy, Denies urinary incontinence and Denies urinary urgency Physical exam (Primary Care) Vital Signs: Last Vital Signs BP 132/86 08/26/24 14:13 BMI result Body Mass Index 28.6 Tobacco/Smoking Status: Tobacco use Status Tobacco use date assessed 06/17/24 08/26/24 14:18 Patient Tobacco Use Status Never used Tobacco 08/26/24 14:18 e-Cigarette/Vaping Use Never Used 08/26/24 14:18 PHQ-9: PHQ-9 Score PHQ-9: Total score 0 08/26/24 14:29 Depression Screening Interpretation: Negative Thrive Assessment: Date of Thrive Assessment Date Thrive assessed 08/26/24 08/26/24 14:18 Currently or been in a relationship where the following occur: No concerns reported Const Orientation/consciousness: patient oriented x3 HENMT Head: Yes normal to inspection, Yes normocephalic and Yes atraumatic Ears: external ears normal Eyes General: appearance normal, both eyes and all related structures Eyelids: Yes eyelids normal Conjunctivae: conjunctivae normal Neck Neck: Yes normal visual inspection and Yes supple Resp Effort & Inspection: normal respiratory effort Auscultation: clear to auscultation bilaterally Cardio Jugular venous distension: no JVD Rate: regular rate Rhythm: regular rhythm Heart sounds: S1 normal heart sound present and S2 normal heart sound present GI Inspection: Yes normal to inspection Palpation (GI): Soft to palpation and nontender Auscultation: normal bowel sounds Skin General skin exam: no rashes or lesions noted Neuro General: patient oriented x3 and no focal motor deficits Extrem General: Yes full ROM Psych Appearance: grossly normal Immunizations Boostrix Tdap 2.5 Lf unit-8 mcg-5 Lf/0.5 mL intramuscular syringe Performing Provider: Allie Mendosa MD [facility] [place] Administered by: CRISPIN Barker on 08/26/24 14:30 Dose Route Admin Location Dispensed Lot Number Expiration Date [facility] Order To Delivery Supervisor 0.5 mL IM Left Deltoid 0.5 mL [id number] 11/07/26 [id number] [employer] VIS Given Date VIS Provided VIS Publication Date 08/26/24 Single Vaccine 24 Eligibility Eligibility Date Funding Source Not [facility] Eligible 08/26/24 Private Coding Level of Care Code Est Pt Prev Care 18-39y(86365) Diagnoses Physical exam Z00.00 Additional Codes JOCELINE-7 Assessment Billing - JOCELINE-7 Assessment Tool: JOCELINE-7 Assessment 00308 ([id number]) PHQ-9 - 34650 - PHQ-9 Billing: Yes ([id number]) Time Spent (min) 30 Assessment & Plan Assessment & Plan (1) Physical exam: Code(s): Z00.00 - Encounter for general adult medical examination without abnormal findings Category: Medical Plan The patient?s essential hypertension is well-managed with Losartan 25 mg, which remains part of his treatment regimen without any need for adjustment as his blood pressure is stable. The patient has a history of nephrolithiasis, monitored successfully, with no immediate issues or treatment changes required. A Tdap vaccine is to be administered, given the lapse of approximately ten years since the last dose. Routine laboratory tests for cholesterol levels, glucose, renal, and liver function will be conducted to aid ongoing health surveillance. Patient was informed and verbally consented to the use of an ambient scribe for clinic note documentation during this visit. I reviewed the patient's current health state, focusing on effectively managed essential hypertension with Losartan, and we affirmed the decision to continue this therapy due to the absence of adverse effects and satisfactory blood pressure readings. I explained the importance of the Tdap vaccine booster today, considering it has been ten years since his last dose, and ensured he understood the need for regular health screening. The patient consented to the planned lab work to assess cholesterol, glucose, renal, and liver metrics. I advised routine follow-ups for his nephrolithiasis and clarified that no acute symptoms are currently concerning. Orders: Orders Comprehensive [place]. Panel Fast Today Z00.00 - Encounter for general adult medical examination without abnormal findings TDaP Immunization Today Z23 - Encounter for immunization Lipid Panel Today Z00.00 - Encounter for general adult medical examination without abnormal findings Patient Instructions: - Administer Tdap vaccine today - Continue taking Losartan 25 mg daily - Attend for routine blood work as ordered - Maintain current lifestyle avoiding smoking and alcohol - Follow-up if there are new symptoms or health concerns
[2024-08-26 14:13] VITALS: BP 132/86; BMI 28.6
--- OUTSIDE RECORDS SUMMARY | 2024-08-26 16:51 | XMS_ITS | Clinical Summary ---
Author Organization [facility] it Address [address] [place] [address] Care Team Providers Care Materials Supervisor Name Role Phone Unavailable Primary Care Provider Unavailabl e Social History Tobacco Use Types Packs/Day Years Used Date Smoking Tobacco: Never Assessed Sex and Gender Information Value Date Recorded Sex Assigned at Not on file Legal Sex Male 1:59 PM EST Gender Identity Not on file Sexual Orientation [...] patient's age to complete this topic Meningococcal B Vacine Aged Out No lo nger eligible based on patient's age to complete [...]
== END 2024-08-26 14:35 | disposition home or self-care (01) ==
LOC: HO.HMCH 14:07
PROVIDERS: PCP Internal Medicine; Visit Provider Internal Medicine
DX: Z23 Encounter for immunization (principal); Z00.00 Encounter for general adult medical examination without abnormal findings

== ENCOUNTER → 2024-08-26 14:06 | Outpatient (BNVA) | payer OTHER, SELFPAY | PROVIDERS: PCP Internal Medicine; Visit Provider Internal Medicine | DX: Z00.00 Encounter for general adult medical examination without abnormal findings (principal); Z23 Encounter for immunization | CPT/HCPCS: 90471; 90715; 96127 ==

== ENCOUNTER 2025-03-01 14:23 | Outpatient (AMB) | payer OTHER, SELFPAY ==
[2025-03-01 14:28] VITALS: BP 154/98; PULSE 95; TEMP 36.3; O2SAT 98; BMI 29.8
--- NOTE | 2025-03-01 14:28 | MHC.PC.OV ---
Vital Signs 03/01/25 14:28 Height 5 ft 10 in Weight 207 lb 6 oz BMI 29.8 BP 154/98 H Blood Pressure Location Lt brachial Position Sitting Pulse 95 Pulse Source Pulse Oximeter Temp 97.3 F Temp Source Temporal Artery Scan Pulse Oximetry (%) 98 Oxygen Delivery Method Room Air Intake Visit Reasons: bp Marketing Communications Specialist Required: No Accompanied by: Self / Same As Patient Allergies No Known Allergies Allergy (Verified 03/01/25 14:34) Medication List - Last Reconciled 03/01/25 by Allie Mendosa MD losartan 25 mg PO DAILY 90 days Tobacco use date assessed: 03/01/25 Dental Screening Dental Screen Date: 03/01/25 Did you have a dental visit in the last 12 months?: Yes Did you have a dental problem in the last 6 months where you did not have access to dental care?: No Was dental information given to patient?: Patient has dentist HPI HPI Comments History of Present Illness Details The patient is a 40-year-old male presenting for follow-up of hypertension management. The patient has a history of essential hypertension, currently managed with losartan 25 mg daily. He did not take his medication today, which may have contributed to his elevated blood pressure reading of 140/90 mmHg during the visit. He denies any recent surgeries, chest pain, dyspnea, fever, or cough. He has no known drug allergies and does not smoke or consume alcohol. The patient was advised to have fasting laboratory tests and a urine test this week, requiring an 8-hour fast prior to testing. COUNT INCLUDES THE [facility] Medical History Renal calculi Overweight (BMI 25.0-29.9) GERD (gastroesophageal reflux disease) Surgical History Hx of cystoscopy Hx of wisdom tooth extraction Family History Mother No problems noted. Father CAD (coronary artery disease) Social History Housing: Apartment Alcohol intake: never Patient Tobacco Use Status: Never used Tobacco e-Cigarette/Vaping Use: Never Used Second Hand Smoke Exposure: No service: No Current occupational status: unemployed Cognitive needs: No Hearing needs: No Vision needs: No Questionnaire PHQ-9 Over the last 2 weeks, how often have you been bothered by any of the following problems? 1. Little interest or pleasure in doing things: not at all 2. Feeling down, depressed, or hopeless: not at all 3. Trouble falling or staying asleep, or sleeping too much: not at all 4. Feeling tired or having little energy: not at all 5. Poor appetite or overeating: not at all 6. Feeling bad about yourself - or that you are a failure or have let yourself or your family down: not at all 7. Trouble concentrating on things, such as reading the newspaper or watching television: not at all 8. Moving or speaking so slowly that other people could have noticed. Or the opposite - being so fidgety or restless that you have been moving around a lot more than usual: not at all 9. Thoughts that you would be better off or of hurting yourself in some way: not at all Total score: 0 Depression Screening Interpretation: Negative Depression Screening Done: Yes [id number] - PHQ-9 Billing: Yes Source: Developed by Drs. Chet Lara, Mary Fierro, Eloy Salgado and colleagues, with an educational ceci from [employer]. Thrive Questionnaire Date Thrive assessed: 08/26/24 I am a: Patient What is your living situation today?: I have a steady place to live Within the past 12 months, did the food you bought not last and you didn't have the money to get more?: I choose not to answer this question Within the past 12 months, did you worry whether your food would run out before you got money to buy more?: Never true Do you have trouble paying for medicines?: No Do you have trouble getting transportation to medical appointments?: No Do you have trouble paying your heating and electricity bill?: No Do you have trouble taking care of your child, family member or friend?: No Do you have trouble with day-to-day activities such as bathing, preparing meals, shopping, managing finances, etc.?: No Are you currently unemployed and looking for a job?: No Are you interested in more education?: No Please select the resources that you would like help with: None Currently or been in a relationship where the following occur: No concerns reported THRIVE Score: 0 AUDIT C Alcohol Use Questionnaire (AUDIT-C) 1. How often do you have a drink containing alcohol?: Never 3. How often do you have six or more drinks on one occasion?: Never Total Score: 0 Score Reviewed/Action Taken: No JOCELINE-7 AMB Questionnaire JOCELINE-7 Date JOCELINE - 7 assessed: 08/26/24 Feeling nervous, anxious, or on edge: 0 = Not at all Not being able to stop or control worryin = Not at all Worrying too much about different things: 0 = Not at all Trouble relaxin = Not at all Being so restless that it is hard to sit still: 0 = Not at all Becoming easily annoyed or irritable: 0 = Not at all Feeling afraid as if something awful might happen: 0 = Not at all Total JOCELINE-7 score (0-4 normal; 5-9 mild; 10-14 moderate; 15-21 severe): 0 Source: Developed by Drs. Chet Lara, Mary Fierro, Eloy Salgado and colleagues, with an educational ceci from [employer]. JOCELINE-7 Assessment Billing JOCELINE-7 Assessment Tool: JOCELINE-7 Assessment 33558 Review of Systems Const All systems reviewed & are unremarkable except as noted in HPI and below Card Denies chest pain at rest, Denies chest pain with activity, Denies edema, Denies irregular heart rhythm, Denies claudication, Denies dyspnea, Denies dyspnea on exertion, Denies orthopnea, Denies paroxysmal nocturnal dyspnea and Denies slow heart rate Resp Denies cough, Denies dyspnea and Denies dyspnea on exertion Physical exam (Primary Care) Vital Signs: Last Vital Signs Temp 97.3 F 03/01/25 14:28 Pulse 95 03/01/25 14:28 BP 154/98 H 03/01/25 14:28 Pulse Ox 98 03/01/25 14:28 Oxygen Delivery Method Room Air 03/01/25 14:28 BMI result Body Mass Index 29.8 Tobacco/Smoking Status: Tobacco use Status Tobacco use date assessed 03/01/25 03/01/25 14:32 Patient Tobacco Use Status Never used Tobacco 03/01/25 14:32 e-Cigarette/Vaping Use Never Used 03/01/25 14:32 PHQ-9: PHQ-9 Score PHQ-9: Total score 0 03/01/25 14:37 Depression Screening Interpretation: Negative Thrive Assessment: Date of Thrive Assessment Date Thrive assessed 08/26/24 03/01/25 14:32 Currently or been in a relationship where the following occur: No concerns reported Resp Effort & Inspection: normal respiratory effort Auscultation: clear to auscultation bilaterally Cardio Jugular venous distension: no JVD Rate: regular rate Rhythm: regular rhythm Heart sounds: S1 normal heart sound present and S2 normal heart sound present Extrem General: Yes full ROM Coding Level of Care Code Est Pt Level 3 (77068) Diagnoses Essential hypertension I10 Additional Codes JOCELINE-7 Assessment Billing - JOCELINE-7 Assessment Tool: JOCELINE-7 Assessment 94779 ([id number]) PHQ-9 - 95844 - PHQ-9 Billing: Yes ([id number]) Time Spent (min) 19 Assessment & Plan Assessment & Plan (1) Essential hypertension: Code(s): I10 - Essential (primary) hypertension Category: Medical Plan Plan Patient was informed and verbally consented to the use of an ambient scribe for clinic note documentation during this visit. 1. Essential Hypertension The patient is advised to continue taking losartan 25 mg daily for hypertension management. He is instructed to monitor his blood pressure regularly and avoid caffeine before measurements. Follow-up is recommended in three weeks to reassess blood pressure control. Orders: Orders Lipid Panel Today E78.5 - Hyperlipidemia, unspecified, I10 - Essential (primary) hypertension Aldosterone Today I10 - Essential (primary) hypertension Catecholamines, Frac., 24Ur Today I10 - Essential (primary) hypertension Comprehensive [place]. Panel Fast Today I10 - Essential (primary) hypertension Renin Today I10 - Essential (primary) hypertension Complete Blood Count Auto Diff Today D72.829 - Elevated white blood cell count, unspecified Medications: Refilled losartan 25 mg PO DAILY 90 tabs 1RF 90 days I10 - Essential (primary) hypertension
--- OUTSIDE RECORDS SUMMARY | 2025-03-01 16:50 | XMS_ITS | Clinical Summary ---
Author Organization [facility] ity Address [address] [place] [address] Care Team Providers Care Barrel Inspector Name Role Phone Unavailable Primary Care Provider [...] of 3 - 19+ 3-dose series) 2005 HPV Vaccines (1 - 3-dose SCD M series) 2013 Depression Screening 05/27/2024 COVID-19 Vaccine (1 - 2023-2 5 season) 2025 Influenza Vaccine (#1) 2025 RSV Immunization Adult Patie nts (1 - 1-dose 75+ series) 2061 HIB Vaccines Aged Out No longer eligi [...] age to complete this topic Meningococcal B Vaccine Aged Out No l onger eligible based on patient's age to complete this topic Pneumococcal Vaccine: Pediat rics (0 to 5 Years) and At-Risk Patients (6 to 49 Years) Aged Out No longer eligible b ased on patient's age to complete this topic RSV Immunization Patients Un jefferson 20 months Aged Out No longer eligible b ased on patient's age to complete this topic Varicella Vaccines Aged Out No longer eligible based on patient's age to complete this topic
== END 2025-03-01 14:45 | disposition home or self-care (01) ==
LOC: HO.HMCH 14:23
PROVIDERS: PCP Internal Medicine; Visit Provider Internal Medicine
DX: I10 Essential (primary) hypertension (principal)

== ENCOUNTER → 2025-03-01 14:23 | Outpatient (BNVA) | payer OTHER, SELFPAY | PROVIDERS: PCP Internal Medicine; Visit Provider Internal Medicine | DX: I10 Essential (primary) hypertension (principal); E78.5 Hyperlipidemia, unspecified; D72.829 Elevated white blood cell count, unspecified | CPT/HCPCS: 96127 ==